=== PATIENT | male | born 1970 | race Caucasian/White ===

== ENCOUNTER 2017-04-29 19:39 | Emergency (ER) | payer BC, SELFPAY | END 2017-04-29 21:36 | disposition home or self-care (01) | PROVIDERS: Emergency Provider Emergency Medicine; Family Provider Internal Medicine Adolescent Medicine; Visit Provider Emergency Medicine | DX: I48.0 Paroxysmal atrial fibrillation (principal); I10 Essential (primary) hypertension; I20.8 Other forms of angina pectoris | CPT/HCPCS: 71020; 80053; 82550; 82553; 84484; 85025; 93005; 99284 ==

== ENCOUNTER 2020-04-06 18:16 | Emergency (ER) | payer BC, SELFPAY ==
[2020-04-06 18:34] VITALS: BP 122/80; PULSE 89; RESP 21; TEMP 37; O2SAT 99; BMI 35.2
--- NOTE | 2020-04-06 18:37 | HMH.EDUTC ---
[facility] [place]ression: Encounter for laboratory testing for COVID-19 virus, Exposure to COVID-19 virus Disposition: Home, Self-Care Condition on Discharge: Good Instructions: Preventing the Spread of Coronavirus Discharge Instructions Additional Instructions: *Monitor Temp, Over the counter Motrin or Tylenol as directed/as needed Tylenol every 4 hours and Motrin every 6 hours (as long as your family doctor has told you that you can take it) for fever or pain. and straight to ER if unable to lower temp less than 101.0 after medication given *Warm salt water gargles may help to soothe the throat *Throat Lozenges *Warm fluids like tea with honey may help to soothe the throat *Sleep elevated *Humidifier/Vaporizer Follow up IMMEDIATELY for new or worsening symptoms or no Noticeable improvement over the next 48-72 hours. 911 for difficulty breathing or swallowing You was tested for today for COVID19 your test result should be back in the next 24-48 hours, you may call to the [facility] later today or tomorrow to see if your test results are back and the result [phone] [facility] hours are 9am-9pm You was given a handout with instructions for Self Quarantine and Self isolation for while you wait on test results and what to do if they are positive If you are positive the Health Dept will be contacting you also Referrals: Jan Hernandez MD [Primary Care Provider] - As needed Forms: Work/School Release Time of Disposition: 18:42 Medical Decision Making - Phani Inquiry Pt receiving controlled substance: No Phani was queried for this patient: No Vital Signs: 04/06/20 18:34 Temperature 98.6 F Temperature Source Oral Pulse Rate [Radial] 89 Respiratory Rate 21 Blood Pressure [Right Arm] 122/80 Blood Pressure Mean [Right Arm] 94 Blood Pressure Source [Right Arm] Automatic Cuff Blood Pressure Position [Right Arm] Sitting 02 Sat by Pulse Oximetry 99 Oxygen Delivery Method Room Air [facility] [place] - General Stated complaint: covid test Time Seen by Provider: 04/06/20 18:37 Mode of Arrival: Ambulatory Source of Information: Patient Limitations: No Limitations Description of Symptoms (Recalled from Triage Doc. by RN): ACHES, COUGH, FEVER, LOSS OF SMELL HEENT Symptoms (Recalled from RN notes): Yes Resp Symptoms (Recalled from RN notes): No Skin Symptoms (Recalled from RN notes): No MS Symptoms (Recalled from RN notes): No Functional Status (Recalled from RN notes): WNL - History of Present Illness Provider Complaint: Patient state that he has been sick since Wednesday States that she was tested for COVID in [facility] but has never received the results States that he has been having fever, body aches, cough and nausea State that tested today and she was positive for COVID so he come in to get checked - Related Data Home Medications Medication Instructions Recorded Confirmed Aspirin [Aspir 81] 81 mg PO DAILY 02/27/19 02/27/19 Metoprolol Fuentes/Hydrochlorothiaz 1 each PO DAILY 02/27/19 02/27/19 [Metoprolol ER-Hctz 100-12.5 mg] Omeprazole [Omeprazole 40mg 40 mg PO DAILY 02/27/19 02/27/19 Capsule] lisinopriL [Lisinopril 10mg Tab] 10 mg PO DAILY 02/27/19 02/27/19 Previous Rx's Medication Instructions Recorded Azithromycin [Zithromax 500mg Tab 500 mg PO DAILY #3 tab 02/27/19 Tri-Andrew] predniSONE [Prednisone 50mg Tab] 50 mg PO DAILY 5 Days #5 tab 02/27/19 Allergies Allergy/AdvReac Type Severity Reaction Status Date / Time NO KNOWN ALLERGIES Allergy Unknown Uncoded 02/27/19 20:03 - Worker's Comp Is this a Worker's Comp case?: No [facility] History - Hepatitis A Screen Drug use history?: No High risk sexual behaviors?: No History of sexually transmitted infection?: No Currently employed?: No Childcare worker?: No Do you have indoor plumbing?: Yes Do you have electricity?: Yes Attestation statement:: This patient has been screened for Hepatitis A risk factors. I have reviewed
[2020-04-06 18:56] VITALS: BP 122/80; PULSE 89; RESP 21; TEMP 37; O2SAT 99
--- NOTE | 2020-04-06 23:31 | PC.NURSE ---
+ COVID results reported
== END 2020-04-06 19:00 | disposition home or self-care (01) ==
PROVIDERS: Emergency Provider Nurse Practitioner; PCP Internal Medicine Adolescent Medicine
DX: U07.1 COVID-19 (principal); I10 Essential (primary) hypertension
CPT/HCPCS: 99201; U0003

== ENCOUNTER → 2020-04-09 07:53 | Outpatient (CLI) | payer BC, SELFPAY ==
[2020-04-09] VITALS (8 sets, daily range): BP systolic 123–138; BP diastolic 84–99; PULSE 87–109; RESP 16; TEMP 36.8–36.9; O2SAT 92–94
--- NOTE | 2020-04-09 08:50 | PC.NURSE ---
Pt sitting up in bed eating breakfast at this time
== END ==
PROVIDERS: PCP Internal Medicine Adolescent Medicine; Visit Provider Internal Medicine Adolescent Medicine
DX: U07.1 COVID-19 (principal); R06.02 Shortness of breath

== ENCOUNTER 2020-04-12 19:23 | Emergency (ER) | payer BC, SELFPAY ==
[2020-04-12] VITALS (8 sets, daily range): BP systolic 113–125; BP diastolic 76–88; PULSE 98–122; RESP 17–24; TEMP 36.7–37.2; O2SAT 93–97; BMI 35.2; BMI 35.0
--- NOTE | 2020-04-12 19:30 | XR_ITS ---
PROCEDURE: XR CHEST PORTABLE CLINICAL HISTORY: COVID POSITIVE, SHORT OF BREATH COMPARISON: CR CXR CHEST(2 VIEWS-NOT PORTABLE) from 02/03/2014 CR CXR CHEST(2 VIEWS-NOT PORTABLE) from 04/29/2017 CR XR CHEST 2V from 02/27/[address] ANGIO CHEST from 04/12/2020 FINDINGS: There is poor inspiration. Borderline cardiomegaly without failure. There are scattered small nodular opacities once again noted. In the right mid lung there is a patchy area of infiltrate. Recommend chest CT for further evaluation. Postsurgical changes right clavicle IMPRESSION: Cardiomegaly with scattered small nodular densities. Patchy infiltrate in the right midlung. Dictated by: Chris Deras MD 04/13/2020 05:45 Chris Deras MD in [place] 04/13/2020 05:45
--- NOTE | 2020-04-12 20:07 | HMH.EDUTC ---
[facility] – [place] Disposition Clinical Impression: COVID-19 Atrial fibrillation Qualifiers: Atrial fibrillation type: unspecified Qualified Code(s): I48.91 - Unspecified atrial fibrillation Disposition: Still a Patient Condition on Discharge: Fair Referrals: Jan Hernandez MD [Primary Care Provider] - Time of Disposition: 20:14 Medical Decision Making - Medical Records Medical records reviewed: No: I reviewed the patient's medical records. - Phani Inquiry Pt receiving controlled substance: No Vital Signs: 04/12/20 19:32 Temperature 98.9 F Temperature Source Oral Pulse Rate [Radial] 122 H Respiratory Rate 24 Blood Pressure [Right Arm] 116/88 Blood Pressure Mean [Right Arm] 97 Blood Pressure Source [Right Arm] Automatic Cuff Blood Pressure Position [Right Arm] Sitting 02 Sat by Pulse Oximetry 97 Oxygen Delivery Method Room Air Orders (Tests/Meds): ORDERS Category Date Time Status Portable CXR [XR chest portable] Stat Exams 04/12/20 19:30 Taken [facility] [place] HPI - General Stated complaint: covid POSITIVE,FEVER,COUGH Time Seen by Provider: 04/12/20 20:07 Mode of Arrival: Ambulatory Source of Information: Patient Limitations: No Limitations Description of Symptoms (Recalled from Triage Doc. by RN): COVID POSITIVE. WANTS CHEST XRAY RELATED TO SOB AND FEVER. HEENT Symptoms (Recalled from RN notes): Yes Resp Symptoms (Recalled from RN notes): Yes Skin Symptoms (Recalled from RN notes): No MS Symptoms (Recalled from RN notes): No Functional Status (Recalled from RN notes): WNL - History of Present Illness Provider Complaint: He states that he has known that he has covid-19 for about the past 2 weeks. He has been having shortness of breath, chest pain, chest tightness, cough and fever. He has a history of atrial fib also. - Related Data Home Medications Medication Instructions Recorded Confirmed Aspirin [Aspir 81] 81 mg PO DAILY 02/27/19 02/27/19 Metoprolol Fuentes/Hydrochlorothiaz 1 each PO DAILY 02/27/19 02/27/19 [Metoprolol ER-Hctz 100-12.5 mg] Omeprazole [Omeprazole 40mg 40 mg PO DAILY 02/27/19 02/27/19 Capsule] lisinopriL [Lisinopril 10mg Tab] 10 mg PO DAILY 02/27/19 02/27/19 Previous Rx's Medication Instructions Recorded Azithromycin [Zithromax 500mg Tab 500 mg PO DAILY #3 tab 02/27/19 Tri-Andrew] predniSONE [Prednisone 50mg Tab] 50 mg PO DAILY 5 Days #5 tab 02/27/19 Allergies Allergy/AdvReac Type Severity Reaction Status Date / Time No Known Allergies Allergy Unverified 04/09/20 08:00 - Worker's Comp Is this a Worker's Comp case?: No [facility] History - Hepatitis A Screen Drug use history?: No High risk sexual behaviors?: No History of sexually transmitted infection?: No Currently employed?: No Childcare worker?: No Do you have indoor plumbing?: Yes Do you have electricity?: Yes Attestation statement:: This patient has been screened for Hepatitis A risk factors. I have reviewed the patient's past medical history: Yes - Social History Alcohol Intake: never Occupational Status: other Housing: house ROS Obtained: Yes All systems reviewed & no additional complaints - Constitutional Constitutional: Reports chills, Reports fever(s), Reports poor appetite, Reports malaise - Eyes Eyes: Denies eye discharge - ENT Ears, Nose, Mouth, and Throat: Reports sore throat - Cardiovascular Cardiovascular: Reports as per HPI - Respiratory Respiratory: Yes as per HPI Physical Exam - General General appearance: alert, in no apparent distress - Head Head exam: atraumatic, normocephalic, normal inspection - Eye Eye exam: Present: normal appearance, PERRL, EOMI - ENT ENT exam: Present: normal exam, normal oropharynx, mucous membranes moist, TM's normal bilaterally, normal external ear exam - Neck Neck exam: Present: normal inspection, full ROM, trachea midline. Absent: meningismus, lymphadenopathy - Chest Chest inspection: Present: normal inspection, symmet
--- NOTE | 2020-04-12 20:55 | CT_ITS ---
PROCEDURE: CT ANGIO CHEST CLINCIAL INDICATION: covid positive/ SOB Shortness of air, cold with positive, abnormal chest x-ray COMPARISON: No exams were available for comparison TECHNIQUE: IV Contrast: 70ML Isovue 370 Axial images obtained with sagittal and coronal reformats. All CT scans at the facility use one or more dose reduction, viz: automated exposure control, ma/kV adjustment per patient size (including targeted exams where dose is matched to indication, i.e. head), or iterative reconstruction technique. FINDINGS: HEART AND MEDIASTINAL STRUCTURES: No evidence of aortic aneurysm or pulmonary embolus. There is a tiny hypodensity within the right middle lobe pulmonary artery image 172 series 2 which is of questionable clinical significance and may even be artifact. There is bulky mediastinal and hilar adenopathy. Many of the nodes are calcified. LUNGS AND PLEURAL SPACES: There are numerous noncalcified pulmonary nodules. Few of these nodules are calcified. In addition, there are scattered multi segmental areas of patchy ground-glass attenuation consistent with Covid19 related pneumonitis. In the right upper lobe there is a 2.4 cm area of infiltrate with some central lucency suggesting early cavitation. Cavitation is not a usual finding with Covid19 pneumonia.. No effusions are evident. BONY STRUCTURES: No acute bony abnormalities apparent. UPPER ABDOMEN: Borderline splenomegaly at 13 cm. ADDITIONAL FINDINGS: No other significant abnormalities. IMPRESSION: 1. No central pulmonary embolus. There is a questionable small filling defect within the right middle lobe pulmonary artery which is of questionable clinical significance. 2. Multi segmental infiltrates in keeping with Covid19 pneumonitis. 3. Multiple bilateral pulmonary nodules. Bulky mediastinal adenopathy is also noted. Some of the nodes are calcified. This could be related to old granulomatous disease versus sarcoidosis or treated lymphoma. Please correlate with patient's history. Follow-up suggested as clinically warranted. 4. 2.4 cm area of dense consolidation in the right upper lobe with suggestion of some central cavitation. This may be related to an area of pneumonia with central necrosis or even neoplasm. Follow-up is suggested to confirm resolution Dictated by: Chris Deras MD 04/13/2020 09:00 Chris Deras MD in [place] 04/13/2020 09:00
[2020-04-12 21:03] LABS: Basophils # 0.1 K/mm3 (0-0.2); Basophils % 0.7 % (0.1-2.0); Eosinophils # 0.2 K/mm3 (0.0-0.4); Hemoglobin 16.2 g/dL (14.1-18.0); Lymphocytes # 1.4 K/mm3 (0.7-4.5); Lymphocytes % 16.3 % (10-50); Mean Corpuscular HGB Conc 34.5 g/dL (31.8-35.4); Mean Corpuscular Hemoglobin 29.1 pg (27.0-31.2); Mean Corpuscular Volume 84.1 fl (80-94); Mean Platelet Volume 7.8 fl (7.4-10.4); Monocytes # 0.6 K/mm3 (0.1-1.0); Monocytes % 6.9 % (1.7-9.3); Neutrophils # 6.1 K/mm3 (1.8-7.8); Platelet Count 298 K/mm3 (142-424); Red Blood Count 5.59 M/mm3 (4.60-6.20); Red Cell Distribution Width 14.2 % (11.5-17.5); White Blood Count 8.2 K/mm3 (4.8-10.8)
[2020-04-12 21:05] LABS: Chloride 97 mmol/L (98-107); Sodium 137 mmol/L (136-145)
[2020-04-12 21:06] LABS: Potassium 3.2 mmoL/L (3.5-5.1)
[2020-04-12 21:07] LABS: Bilirubin,Unconjugated 0.9 mg/dL (0.0-1.1)
[2020-04-12 21:08] LABS: Alanine Aminotransferase 26 U/L (12-78); Albumin Level 4.4 g/dl (3.5-5.0); Alkaline Phosphatase 102 U/L (38-126); Aspartate Amino Transferase 28 U/L (17-59); Bilirubin,Direct 0.1 mg/dl (0.0-0.4); Bilirubin,Indirect 0.9 mg/dL (0.0-0.9); Total Protein,Serum 8.8 g/dl (6.3-8.2)
[2020-04-12 21:09] LABS: Anion Gap 12.2 mEq/L (5-15); Blood Urea Nitrogen 17 mg/dl (9-20); Calcium 9.5 mg/dl (8.4-10.2); Carbon Dioxide 31 mmol/L (22.0-30.0); Creatinine Clearance Estimated 118 mL/min (50-200); Estimated Glomerular Filt Rate 65 ml/min (>60); GFR (African American) 78 ML/MIN (>60); Glucose 167 mg/dl (74-100); Lactic Acid 1.4 mmol/L (0.7-2.1)
--- NOTE | 2020-04-12 21:19 | ECG_ITS ---
APPROVED REPORT Exam: Resting ECG HR:107 bpm ECG Measurements Heart Rate 107 AXES MO 202 P 91 QRSd 150 QRS -54 QT 368 T 18 QTc 491 Conclusion 1st Degree AV block with PVCs Left axis deviation Right bundle branch block Abnormal ECG Electronically signed by : Jan Hernandez, 04/14/2020 19:58:50
[2020-04-12 21:29] LABS: Troponin I < 0.01 ng/ml (0.00-0.034)
--- NOTE | 2020-04-12 22:52 | HMH.EDSOB ---
ED Disposition Clinical Impression: COVID-19, Pneumonia due to COVID-19 virus, RBBB, Obesity (BMI 30-39.9) Atrial fibrillation Qualifiers: Atrial fibrillation type: unspecified Qualified Code(s): I48.91 - Unspecified atrial fibrillation Disposition: Home, Self-Care Condition on Discharge: Good Instructions: DI for Shortness of Breath Additional Instructions: use meds and call pcp for follow up Referrals: Jan Hernandez MD [Primary Care Provider] - - Critical Care Critical Care Time: No Attestation: On 04/12/20, the high probability of a clinically significant, sudden or life threatening deterioration of the following system(s) required my full and direct attention, intervention and personal management. The time I documented below is in addition to time spent performing reported procedures but includes the following listed in this critical care notation. Medical Decision Making - Medical Records Medical records reviewed: Yes: I reviewed the patient's medical records. - Phani Inquiry Pt receiving controlled substance: No Vital Signs: 04/12/20 19:32 04/12/20 20:41 04/12/20 21:00 Temperature 98.9 F 98.9 F Temperature Source Oral Oral Pulse Rate [Radial] 122 H 103 H 103 H Respiratory Rate 24 22 17 Blood Pressure [Right Arm] 116/88 125/88 125/88 Blood Pressure Mean [Right Arm] 97 100 100 Blood Pressure Source [Right Arm] Automatic Cuff Automatic Cuff Automatic Cuff Blood Pressure Position [Right Arm] Sitting Sitting Supine 02 Sat by Pulse Oximetry 97 97 96 Oxygen Delivery Method Room Air Room Air Room Air 04/12/20 21:30 Temperature Temperature Source Pulse Rate [Radial] 103 H Respiratory Rate 17 Blood Pressure [Right Arm] 124/83 Blood Pressure Mean [Right Arm] 96 Blood Pressure Source [Right Arm] Automatic Cuff Blood Pressure Position [Right Arm] Supine 02 Sat by Pulse Oximetry 95 Oxygen Delivery Method Room Air - Lab Data Lab results reviewed: Yes: I reviewed the patient's lab results. Lab Results 04/12/20 20:43: WBC 8.2, RBC 5.59, Hgb 16.2, Hct 47.0, MCV 84.1, MCH 29.1, MCHC 34.5, RDW 14.2, Plt Count 298, MPV 7.8, Neut % (Auto) 74.0, Lymph % (Auto) 16.3, [place] % (Auto) 6.9, Eos % (Auto) 2.0, Baso % (Auto) 0.7, Neut # (Auto) 6.1, Lymph # (Auto) 1.4, [place] # (Auto) 0.6, Eos # (Auto) 0.2, Baso # (Auto) 0.1 04/12/20 20:43: Sodium 137, Potassium 3.2 L, Chloride 97 L, Carbon Dioxide 31 H, Anion Gap 12.2, BUN 17, Creatinine 1.20, Estimated Creat Clear 118, Estimated GFR 65, Est GFR ( Amer) 78, Glucose 167 H, Calcium 9.5, Troponin I < 0.01 04/12/20 20:43: Lactate 1.4 04/12/20 20:43: Total Bilirubin 1.0, Direct Bilirubin 0.1, Conjugated Bilirubin 0.0, Indirect Bilirubin 0.9, Unconjugated Bilirubin 0.9, AST 28, ALT 26, Alkaline Phosphatase 102, Total Protein 8.8 H, Albumin 4.4 Result diagrams: 04/12/20 20:43 04/12/20 20:43 Orders (Tests/Meds): ED MEDICATIONS Generic Name Dose Route Start Last Admin Trade Name Freq PRN Reason Stop Dose Admin Albuterol Sulfate 2 puffs 04/12/20 22:55 Albuterol-Hfa 90mcg/Puff Inhaler 8gm IH 05/12/20 22:54 Q4HP PRN Shortness Of Breath Sodium Chloride 1,000 mls @ 999 mls/hr 04/12/20 20:45 04/12/20 22:10 Sod Chlor 0.9% 1000ml Bag IV 04/12/20 21:45 999 mls/hr .Q1H1M JONE Administration Discontinued Medications Generic Name Dose Route Start Last Admin Trade Name Freq PRN Reason Stop Dose Admin Dexamethasone Sodium Phosphate 10 mg 04/12/20 20:43 04/12/20 22:09 Dexamethasone 4mg/Ml 1ml Vial IV 04/12/20 20:44 10 mg ONCE ONE Administration Ketorolac Tromethamine 30 mg 04/12/20 20:43 04/12/20 22:08 Ketorolac 30mg/Ml Vial IV 04/12/20 20:44 30 mg ONCE ONE Administration Levofloxacin 500 mg 04/12/20 22:55 Levofloxacin 500mg Tab PO 04/12/20 22:56 ONCE ONE Protocol Miscellaneous 1 unit 04/12/20 22:55 Aerochamber/Optihaler MC 04/12/20 22:56 ONCE ONE ORDERS Category Date Time S
== END 2020-04-12 23:32 | disposition home or self-care (01) ==
LOC: UTC 20:14 → ER 20:25
PROVIDERS: Emergency Provider Emergency Medicine; PCP Internal Medicine Adolescent Medicine
DX: U07.1 COVID-19 (principal); J18.9 Pneumonia, unspecified organism; E66.9 Obesity, unspecified; Z68.35 Body mass index [BMI] 35.0-35.9, adult
CPT/HCPCS: 71045; 71275; 80048; 80076; 83605; 84484; 85025; 87040; 93005; 96365; 96375; 99284; Q9967

== ENCOUNTER → 2020-04-19 15:23 | Outpatient (CLI) | payer BC, SELFPAY ==
[2020-04-19 16:26] LABS: Basophils # 0.1 K/mm3 (0-0.2); Eosinophils # 0.2 K/mm3 (0.0-0.4); Eosinophils % 2.1 % (0.1-12.0); Hematocrit 44.7 % (42.0-52.0); Hemoglobin 15.5 g/dL (14.1-18.0); Lymphocytes # 1.4 K/mm3 (0.7-4.5); Lymphocytes % 14.8 % (10-50); Mean Corpuscular HGB Conc 34.7 g/dL (31.8-35.4); Mean Corpuscular Volume 86.6 fl (80-94); Mean Platelet Volume 8.1 fl (7.4-10.4); Monocytes # 0.6 K/mm3 (0.1-1.0); Monocytes % 6.1 % (1.7-9.3); Neutrophils # 7.4 K/mm3 (1.8-7.8); Neutrophils % 76.1 % (37.0-80.0); Platelet Count 305 K/mm3 (142-424); Red Blood Count 5.16 M/mm3 (4.60-6.20); Red Cell Distribution Width 13.7 % (11.5-17.5); White Blood Count 9.7 K/mm3 (4.8-10.8)
[2020-04-19 16:52] LABS: Alanine Aminotransferase 148 U/L (12-78); Albumin Level 3.8 g/dl (3.5-5.0); Albumin/Globulin Ratio 1.2 (1.1-1.8); Alkaline Phosphatase 113 U/L (38-126); Anion Gap 11.4 mEq/L (5-15); Aspartate Amino Transferase 57 U/L (17-59); Bilirubin,Total 0.6 mg/dl (0.2-1.3); Blood Urea Nitrogen 24 mg/dl (9-20); Calcium 9.4 mg/dl (8.4-10.2); Carbon Dioxide 26 mmol/L (22.0-30.0); Chloride 103 mmol/L (98-107); Estimated Glomerular Filt Rate 80 ml/min (>60); GFR (African American) 97 ML/MIN (>60); Globulin 3.3 g/dL (1.3-3.2); Glucose 188 mg/dl (74-100); Potassium 4.4 mmoL/L (3.5-5.1); Sodium 136 mmol/L (136-145); Total Protein,Serum 7.1 g/dl (6.3-8.2)
[2020-04-19 17:04] LABS: NT Pro Brain Natriuretic Pep. 337 pg/mL (0-125)
[2020-04-19 17:46] LABS: Troponin I < 0.01 ng/ml (0.00-0.034)
== END ==
PROVIDERS: Visit Provider Internal Medicine Adolescent Medicine
DX: I48.0 Paroxysmal atrial fibrillation (principal)
CPT/HCPCS: 36415; 80053; 83880; 84484; 85025

== ENCOUNTER 2020-07-28 00:08 | Emergency (ER) | payer BC, SELFPAY ==
[2020-07-28 00:18] VITALS: BP 140/104; PULSE 77; RESP 18; TEMP 36.8; O2SAT 97; BMI 35.9
[2020-07-28 00:20] LABS: POC Glucose,Bedside 390 (70-110)
[2020-07-28 00:35] LABS: Microscopic, Urine URINE MICROSCOPIC (MICROSCOPIC)
[2020-07-28 00:36] LABS: Basophils # 0.1 K/mm3 (0-0.2); Basophils % 1.3 % (0.1-2.0); Eosinophils # 0.4 K/mm3 (0.0-0.4); Eosinophils % 5.6 % (0.1-12.0); Hemoglobin 15.3 g/dL (14.1-18.0); Lymphocytes # 1.6 K/mm3 (0.7-4.5); Lymphocytes % 23.1 % (10-50); Mean Corpuscular HGB Conc 36.4 g/dL (31.8-35.4); Mean Corpuscular Hemoglobin 30.4 pg (27.0-31.2); Mean Corpuscular Volume 83.3 fl (80-94); Mean Platelet Volume 7.8 fl (7.4-10.4); Monocytes # 0.4 K/mm3 (0.1-1.0); Monocytes % 6.1 % (1.7-9.3); Neutrophils # 4.4 K/mm3 (1.8-7.8); Neutrophils % 63.9 % (37.0-80.0); Platelet Count 211 K/mm3 (142-424); Red Blood Count 5.04 M/mm3 (4.60-6.20); White Blood Count 6.8 K/mm3 (4.8-10.8)
[2020-07-28 00:37] LABS: Appearance,Urine CLEAR (Clear); Bilirubin,Urine Negative (Negative); Blood, Urine Negative (Negative); Color,Urine YELLOW (Yellow); Glucose,Urine (UA) 3+ (Negative); Ketones,Urine Negative (Negative); Leukocyte Esterase,Urine Negative (Negative); Nitrate,Urine Negative (Negative); Protein,Urine Negative (Negative); Specific Gravity, Urine >= 1.030 (1.005-1.030); Urobilinogen,Urine 0.2 EU/dl (0.2)
[2020-07-28 00:42] LABS: Acetone, Serum (Rapid) None Detected (None Detect)
[2020-07-28 00:47] LABS: Alanine Aminotransferase 29 U/L (12-78); Albumin Level 4.4 g/dl (3.5-5.0); Albumin/Globulin Ratio 1.2 (1.1-1.8); Anion Gap 11.7 mEq/L (5-15); Aspartate Amino Transferase 32 U/L (17-59); Blood Urea Nitrogen 25 mg/dl (9-20); Calcium 9.8 mg/dl (8.4-10.2); Carbon Dioxide 30 mmol/L (22.0-30.0); Chloride 93 mmol/L (98-107); Creatinine Clearance Estimated 130 mL/min (50-200); Estimated Glomerular Filt Rate 71 ml/min (>60); GFR (African American) 86 ML/MIN (>60); Globulin 3.7 g/dL (1.3-3.2); Glucose 355 mg/dl (74-100); Potassium 3.7 mmoL/L (3.5-5.1); Sodium 131 mmol/L (136-145); Total Protein,Serum 8.1 g/dl (6.3-8.2)
[2020-07-28 00:51] LABS: Amylase 52 U/L (30-110)
[2020-07-28 00:52] LABS: C-Reactive Protein 18.3 mg/L (0-4); Hemoglobin A1C 8.3 % (4.0-6.0); Lipase 85 U/L (23-300)
[2020-07-28 00:53] LABS: Alkaline Phosphatase 139 U/L (38-126)
[2020-07-28 01:05] LABS: Procalcitonin 0.084 ng/mL (0.0-2.0)
--- NOTE | 2020-07-28 01:42 | HMH.EDGENADL ---
ED Disposition Clinical Impression: Hyperglycemia without ketosis, Obesity (BMI 30-39.9) Disposition: Home, Self-Care Condition on Discharge: Good Instructions: DI for Hyperglycemia -- Adult Additional Instructions: use meds and see pcp for follow up Prescriptions: Metformin HCl [Metformin HCl ER] 500 mg PO BID #60 tab.er.24h Transmission Status: Pending to [id number] Referrals: Jan Hernandez MD [Primary Care Provider] - - Critical Care Critical Care Time: No Attestation: On 07/28/20, the high probability of a clinically significant, sudden or life threatening deterioration of the following system(s) required my full and direct attention, intervention and personal management. The time I documented below is in addition to time spent performing reported procedures but includes the following listed in this critical care notation. Medical Decision Making - Medical Records Medical records reviewed: Yes: I reviewed the patient's medical records. - Phani Inquiry Pt receiving controlled substance: No Vital Signs: 07/28/20 00:18 Temperature 98.2 F Temperature Source Oral Pulse Rate [Right] 77 Respiratory Rate 18 Blood Pressure [Right Arm] 140/104 H Blood Pressure Mean [Right Arm] 116 Blood Pressure Source [Right Arm] Automatic Cuff Blood Pressure Position [Right Arm] Sitting 02 Sat by Pulse Oximetry 97 Oxygen Delivery Method Room Air - Lab Data Lab results reviewed: Yes: I reviewed the patient's lab results. Lab Results 07/28/20 00:13: POC Glucose 390 H* 07/28/20 00:27: Urine Color Yellow, Urine Appearance Clear, Urine pH 5.0, Ur Specific [place] >= 1.030, Urine Protein Negative, Urine Glucose (UA) 3+, Urine Ketones Negative, Urine Blood Negative, Urine Nitrate Negative, Urine Bilirubin Negative, Urine Urobilinogen 0.2, Ur Leukocyte Esterase Negative, Ur Squamous Epith Cells 3-5 07/28/20 00:27: WBC 6.8, RBC 5.04, Hgb 15.3, Hct 42.0, MCV 83.3, MCH 30.4, MCHC 36.4 H, RDW 14.0, Plt Count 211, MPV 7.8, Neut % (Auto) 63.9, Lymph % (Auto) 23.1, [place] % (Auto) 6.1, Eos % (Auto) 5.6, Baso % (Auto) 1.3, Neut # (Auto) 4.4, Lymph # (Auto) 1.6, [place] # (Auto) 0.4, Eos # (Auto) 0.4, Baso # (Auto) 0.1, ESR Cancelled 07/28/20 00:27: Sodium 131 L, Potassium 3.7, Chloride 93 L, Carbon Dioxide 30, Anion Gap 11.7, BUN 25 H, Creatinine 1.10, Estimated Creat Clear 130, Estimated GFR 71, Est GFR ( Amer) 86, Glucose 355 H, Calcium 9.8, Total Bilirubin 1.0, AST 32, ALT 29, Alkaline Phosphatase 139 H, C-Reactive Protein 18.3 H, Total Protein 8.1, Albumin 4.4, Globulin 3.7 H, Albumin/Globulin Ratio 1.2, Procalcitonin 0.084, Acetone Level None detected 07/28/20 00:27: Hemoglobin A1c 8.3 H 07/28/20 00:27: Amylase 52, Lipase 85 Result diagrams: 07/28/20 00:27 07/28/20 00:27 Orders (Tests/Meds): ED MEDICATIONS Generic Name Dose Route Start Last Admin Trade Name Freq PRN Reason Stop Dose Admin Sodium Chloride 1,000 mls @ 999 mls/hr 07/28/20 00:30 07/28/20 00:30 Sod Chlor 0.9% 1000ml Bag IV 07/28/20 01:30 999 mls/hr .Q1H1M JONE Administration Discontinued Medications Generic Name Dose Route Start Last Admin Trade Name Freq PRN Reason Stop Dose Admin Insulin Human Regular 5 unit 07/28/20 01:17 07/28/20 01:17 Insulin Human Regular 100 Units/Ml 10ml Vial IVP 07/28/20 01:18 5 unit ONCE ONE Administration Medical Decision Narrative: will begin meds and call pcp for follow up General Adult HPI - General Chief complaint: Hyper/Hypoglycemia Stated complaint: Shaky;Weak; High Blood Sugar Time Seen by Provider: 07/28/20 00:30 Mode of Arrival: Ambulatory Source of Information: Patient, Spouse, Medical Record Limitations: No Limitations Description of Symptoms (Recalled from ER Triage Doc. by RN): Pt states his Glucose has been running in the 300's for several days, he has not been dx with diabetes and does not take any meds for glucose management - History of Present Illness
[2020-07-28 02:11] LABS: POC Glucose,Bedside 321 (70-110)
[2020-07-28 02:32] VITALS: BP 135/82; PULSE 84; RESP 16; TEMP 36.8; O2SAT 98
== END 2020-07-28 02:36 | disposition home or self-care (01) ==
PROVIDERS: Emergency Provider Emergency Medicine; PCP Internal Medicine Adolescent Medicine
DX: R73.9 Hyperglycemia, unspecified (principal); R03.0 Elevated blood-pressure reading, without diagnosis of hypertension; I48.91 Unspecified atrial fibrillation; E66.9 Obesity, unspecified; Z68.35 Body mass index [BMI] 35.0-35.9, adult
CPT/HCPCS: 80053; 81001; 82009; 82150; 82962; 83036; 83690; 84145; 85025; 86140; 96365; 96366; 96375; 99282

== ENCOUNTER 2020-09-08 00:33 | Emergency (ER) | payer BC, SELFPAY ==
[2020-09-08] VITALS (8 sets, daily range): BP systolic 100–163; BP diastolic 60–101; PULSE 76–83; RESP 14–17; TEMP 36.4; O2SAT 94–97; BMI 28.7
--- NOTE | 2020-09-08 00:35 | ECG_ITS ---
APPROVED REPORT Exam: Resting ECG HR:83 bpm ECG Measurements Heart Rate 83 AXES NM 230 P 33 QRSd 192 QRS -56 QT 444 T 12 QTc 521 Conclusion Sinus rhythm with 1st degree AV block Right bundle branch block Left anterior fascicular block Bifascicular block Abnormal ECG Electronically signed by : Jan Hernandez, 09/08/2020 07:28:50
--- NOTE | 2020-09-08 00:53 | CT_ITS ---
PROCEDURE INFORMATION: Exam: CT Head Without Contrast Exam date and time: 09/08/2020 12:53 AM Age: 50 years old Clinical indication: Injury or trauma; Blunt trauma (contusions or hematomas); Consciousness not specified; Patient HX: Fall. PT not responsive. Intoxicated TECHNIQUE: Imaging protocol: Computed tomography of the head without contrast. Radiation optimization: All CT scans at this facility use at least one of these dose optimization techniques: automated exposure control; mA and/or kV adjustment per patient size (includes targeted exams where dose is matched to clinical indication); or iterative reconstruction. COMPARISON: No relevant prior studies available. FINDINGS: Brain: Normal. No hemorrhage. Unremarkable white matter. No mass effect. Cerebral ventricles: No ventriculomegaly. Bones/joints: Unremarkable. No acute fracture. Paranasal sinuses: Visualized sinuses are unremarkable. No fluid levels. Mastoid air cells: Visualized mastoid air cells are well aerated. Soft tissues: Unremarkable. IMPRESSION: No acute intracranial abnormality.
--- NOTE | 2020-09-08 00:53 | CT_ITS ---
PROCEDURE INFORMATION: Exam: CT Cervical Spine Without Contrast Exam date and time: 09/08/2020 12:53 AM Age: 50 years old Clinical indication: Injury or trauma; Blunt trauma; Patient HX: Fall. Intoxicated. PT not very responsive TECHNIQUE: Imaging protocol: Computed tomography images of the cervical spine without contrast. Radiation optimization: All CT scans at this facility use at least one of these dose optimization techniques: automated exposure control; mA and/or kV adjustment per patient size (includes targeted exams where dose is matched to clinical indication); or iterative reconstruction. COMPARISON: No relevant prior studies available. FINDINGS: Bones/joints: No acute fracture. Normal alignment. Discs/Spinal canal/Neural foramina: Mild multilevel discogenic degenerative changes are present without neural foraminal or spinal canal stenosis. Lungs: Lung apices are normal. Soft tissues: Unremarkable. IMPRESSION: No acute findings.
--- NOTE | 2020-09-08 00:53 | XR_ITS ---
PROCEDURE INFORMATION: Exam: XR Chest Exam date and time: 09/08/2020 12:53 AM Age: 50 years old Clinical indication: Injury or trauma; Blunt trauma (contusions or hematomas); Patient HX: Fall. PT not very responsive. Intoxicated TECHNIQUE: Imaging protocol: XR of the chest. Views: 1 view. COMPARISON: CR XR CHEST PORTABLE 04/12/2020 8:00 PM FINDINGS: Lungs: Low lung volumes bilaterally. Pleural spaces: Unremarkable. No pleural effusion. No pneumothorax. Heart/Mediastinum: Cardiac silhouette upper limits of normal. Patchy airspace opacities partially silhouette the heart borders, could represent developing consolidations. Bones/joints: Unremarkable. IMPRESSION: Patchy airspace opacities partially silhouette the heart borders, could represent developing consolidations.
--- NOTE | 2020-09-08 00:53 | XR_ITS ---
PROCEDURE INFORMATION: Exam: XR Pelvis Exam date and time: 09/08/2020 12:53 AM Age: 50 years old Clinical indication: Injury or trauma; Blunt trauma (contusions or hematomas); Does not apply; Pelvic region; Patient HX: Fall. Not responsive TECHNIQUE: Imaging protocol: XR pelvis. Views: 1 or 2 view. COMPARISON: CR [id number] HIP RT 2-3V W/PELVIS IF PERFOR 08/08/2015 3:59 PM FINDINGS: Bones/joints: Unremarkable. No acute fracture. Soft tissues: Unremarkable. IMPRESSION: No acute findings.
[2020-09-08 01:04] LABS: Microscopic, Urine URINE MICROSCOPIC (MICROSCOPIC)
[2020-09-08 01:10] LABS: Basophils # 0.1 K/mm3 (0-0.2); Basophils % 1.5 % (0.1-2.0); Eosinophils # 0.3 K/mm3 (0.0-0.4); Eosinophils % 4.9 % (0.1-12.0); Hematocrit 41.7 % (42.0-52.0); Hemoglobin 14.3 g/dL (14.1-18.0); Lymphocytes # 1.5 K/mm3 (0.7-4.5); Lymphocytes % 23.9 % (10-50); Mean Corpuscular HGB Conc 34.3 g/dL (31.8-35.4); Mean Corpuscular Hemoglobin 28.7 pg (27.0-31.2); Mean Corpuscular Volume 83.8 fl (80-94); Mean Platelet Volume 7.1 fl (7.4-10.4); Monocytes # 0.6 K/mm3 (0.1-1.0); Monocytes % 8.6 % (1.7-9.3); Neutrophils # 3.9 K/mm3 (1.8-7.8); Platelet Count 195 K/mm3 (142-424); Red Blood Count 4.98 M/mm3 (4.60-6.20); Red Cell Distribution Width 14.2 % (11.5-17.5); White Blood Count 6.4 K/mm3 (4.8-10.8)
--- NOTE | 2020-09-08 01:14 | HMH.EDFALL ---
ED Disposition Clinical Impression: RBBB, Hypokalemia, Alcohol use Concussion without loss of consciousness Qualifiers: Encounter type: initial encounter Qualified Code(s): S06.0X0A - Concussion without loss of consciousness, initial encounter Disposition: Home, Self-Care Condition on Discharge: Good Instructions: DI for Postconcussion Syndrome Referrals: Jan Hernandez MD [Primary Care Provider] - - Critical Care Critical Care Time: No Attestation: On 09/08/20, the high probability of a clinically significant, sudden or life threatening deterioration of the following system(s) required my full and direct attention, intervention and personal management. The time I documented below is in addition to time spent performing reported procedures but includes the following listed in this critical care notation. Medical Decision Making - Medical Records Medical records reviewed: Yes: I reviewed the patient's medical records. - Phani Inquiry Pt receiving controlled substance: No Vital Signs: 09/08/20 00:34 09/08/20 00:53 09/08/20 01:41 Temperature 97.5 F L Temperature Source Rectal Pulse Rate 76 76 Pulse Rate [Right] 80 Respiratory Rate 14 Blood Pressure 150/99 H 150/99 H Blood Pressure [Right Arm] 129/76 Blood Pressure Mean [Right Arm] 93 Blood Pressure Source Automatic Cuff Automatic Cuff Blood Pressure Position Supine Supine 02 Sat by Pulse Oximetry 96 97 97 Oxygen Delivery Method Room Air Nasal Cannula Oxygen Flow Rate (LPM) 2 09/08/20 02:00 09/08/20 02:30 09/08/20 04:04 Temperature 97.5 F L Temperature Source Pulse Rate 80 78 83 Pulse Rate [Right] Respiratory Rate 16 Blood Pressure 163/100 H 154/101 H 100/65 L Blood Pressure [Right Arm] Blood Pressure Mean [Right Arm] Blood Pressure Source Automatic Cuff Automatic Cuff Blood Pressure Position Supine Supine 02 Sat by Pulse Oximetry 94 L Oxygen Delivery Method Nasal Cannula Room Air Oxygen Flow Rate (LPM) 2 - Lab Data Lab results reviewed: Yes: I reviewed the patient's lab results. Lab Results 09/08/20 00:50: WBC 6.4, RBC 4.98, Hgb 14.3, Hct 41.7 L, MCV 83.8, MCH 28.7, MCHC 34.3, RDW 14.2, Plt Count 195, MPV 7.1 L, Neut % (Auto) 61.0, Lymph % (Auto) 23.9, [place] % (Auto) 8.6, Eos % (Auto) 4.9, Baso % (Auto) 1.5, Neut # (Auto) 3.9, Lymph # (Auto) 1.5, [place] # (Auto) 0.6, Eos # (Auto) 0.3, Baso # (Auto) 0.1 09/08/20 00:50: Sodium 134 L, Potassium 2.5 L*, Chloride 95 L, Carbon Dioxide 23, Anion Gap 18.5 H, BUN 18, Creatinine 1.30 H, Estimated Creat Clear 88, Estimated GFR 59, Est GFR ( Amer) 71, Glucose 121 H, Calcium 9.6, Total Bilirubin 0.9, AST 31, ALT 26, Alkaline Phosphatase 92, Troponin I < 0.01, Total Protein 8.1, Albumin 4.7, Globulin 3.4 H, Albumin/Globulin Ratio 1.4, Salicylates < 1.0 L, Acetaminophen < 10 L 09/08/20 00:50: Plasma/Serum Alcohol 156 H 09/08/20 00:50: Urine Color Yellow, Urine Appearance Clear, Urine pH 5.0, Ur Specific [place] 1.010, Urine Protein Negative, Urine Glucose (UA) 2+, Urine Ketones Negative, Urine Blood 1+, Urine Nitrate Negative, Urine Bilirubin Negative, Urine Urobilinogen 0.2, Ur Leukocyte Esterase Negative, Urine RBC Occasional, Urine WBC Occasional, Ur Squamous Epith Cells None, Amorphous Sediment Trace, Urine Bacteria Trace 09/08/20 00:50: Urine Opiates Screen Negative, Urine Methadone Screen Negative, Ur Barbituates Screen Negative, Ur Phencyclidine Scrn Negative, Ur Amphetamines Screen Negative, U Benzodiazepines Scrn Negative, Urine Cocaine Screen Negative, U Marijuana (THC) Screen Negative 09/08/20 00:50: Hemoglobin A1c 6.7 H 09/08/20 00:50: Acetone Level None detected Result diagrams: 09/08/20 00:50 09/08/20 00:50 Orders (Tests/Meds): ED MEDICATIONS Generic Name Dose Route Start Last Admin Trade Name Freq PRN Reason Stop Dose Admin Sodium Chloride 1,000 mls @ 999 mls/hr 09/08/20 03:15 09/08/20 03:26 Sod Chlor 0.9% 1000ml Bag IV 09/08/20 04:15
[2020-09-08 01:15] LABS: Chloride 95 mmol/L (98-107); Sodium 134 mmol/L (136-145)
[2020-09-08 01:18] LABS: Alanine Aminotransferase 26 U/L (12-78); Albumin Level 4.7 g/dl (3.5-5.0); Albumin/Globulin Ratio 1.4 (1.1-1.8); Alkaline Phosphatase 92 U/L (38-126); Anion Gap 18.5 mEq/L (5-15); Aspartate Amino Transferase 31 U/L (17-59); Bilirubin,Total 0.9 mg/dl (0.2-1.3); Blood Urea Nitrogen 18 mg/dl (9-20); Calcium 9.6 mg/dl (8.4-10.2); Carbon Dioxide 23 mmol/L (22.0-30.0); Creatinine Clearance Estimated 88 mL/min (50-200); Estimated Glomerular Filt Rate 59 ml/min (>60); Ethyl Alcohol 156 mg/dl (0-10); GFR (African American) 71 ML/MIN (>60); Globulin 3.4 g/dL (1.3-3.2); Glucose 121 mg/dl (74-100); Total Protein,Serum 8.1 g/dl (6.3-8.2)
[2020-09-08 01:19] LABS: Appearance,Urine CLEAR (Clear); Bilirubin,Urine Negative (Negative); Blood, Urine 1+ (Negative); Color,Urine YELLOW (Yellow); Glucose,Urine (UA) 2+ (Negative); Ketones,Urine Negative (Negative); Leukocyte Esterase,Urine Negative (Negative); Nitrate,Urine Negative (Negative); Protein,Urine Negative (Negative); Urobilinogen,Urine 0.2 EU/dl (0.2)
[2020-09-08 01:20] LABS: Acetaminophen < 10 ug/ml (10-30); Salicylate < 1.0 mg/dL (2.0-20.0)
[2020-09-08 01:21] LABS: Potassium 2.5 mmoL/L (3.5-5.1)
--- NOTE | 2020-09-08 01:22 | PC.NURSE ---
misty notified of critical potassium
[2020-09-08 01:30] LABS: Barbiturates Screen,Urine Negative ng/ml (<200)
[2020-09-08 01:31] LABS: Amphetamine/Metha Screen,Urine Negative ng/ml (<1000); Benzodiazepines Screen,Urine Negative ng/ml (<200)
[2020-09-08 01:32] LABS: Cannabinoid Screen,Urine Negative ng/ml (<50); Cocaine Screen,Urine Negative ng/ml (<300)
[2020-09-08 01:33] LABS: Methadone Screen,Urine Negative ng/ml (<300)
[2020-09-08 01:34] LABS: Phencyclidine Screen,Urine Negative ng/ml (<25)
[2020-09-08 01:40] LABS: Troponin I < 0.01 ng/ml (0.00-0.034)
[2020-09-08 01:45] LABS: Amorphous Sediment,Urine Trace /lpf; Bacteria,Urine Trace /lpf; RBC,Urine Occasional #/hpf (0-3); WBC,Urine Occasional #/hpf (0-3)
[2020-09-08 01:51] LABS: Acetone, Serum (Rapid) None Detected (None Detect); Hemoglobin A1C 6.7 % (4.0-6.0)
[2020-09-08 02:20] LABS: Opiate Screen,Urine Negative ng/ml (<300)
[2020-09-10 07:17] LABS: ABG PH 7.39 mmol/L (7.35-7.45)
[2020-09-10 07:18] LABS: ABG Base Excess -1.7 mmol/L (-2.4-2.3); ABG HCO3 22.9 mmhg (22.0-26.0); ABG Oxygen Saturation 92 % (90-100); ABG PCO2 38.4 mmhg (35.0-45.0); ABG PO2 65.2 mmhg (80-100); ABG TCO2 24.1 mmhg (23-27); Allen's Test ACCEPTABLE; Oxygen ROOM AIR %; Source L RADIAL
[2020-10-21 12:31] LABS: POC Glucose,Bedside 140 (70-110)
== END 2020-09-08 04:25 | disposition home or self-care (01) ==
PROVIDERS: Emergency Provider Emergency Medicine; PCP Internal Medicine Adolescent Medicine
DX: S06.0X0A Concussion without loss of consciousness, initial encounter (principal); W18.39XA Other fall on same level, initial encounter; Y92.019 Unspecified place in single-family (private) house as the place of occurrence of the external cause; F10.10 Alcohol abuse, uncomplicated; E11.65 Type 2 diabetes mellitus with hyperglycemia; E87.6 Hypokalemia
CPT/HCPCS: 70450; 71045; 72125; 72170; 80053; 80305; 80329; 81001; 82009; 82803; 82962; 83036; 84484; 85025; 93005; 96365; 96375; 99283

== ENCOUNTER → 2020-09-10 09:05 | Outpatient (CLI) | payer BC, SELFPAY ==
--- NOTE | 2020-09-10 | XR_ITS ---
PROCEDURE: XR SHOULDER LT MIN 2V CLINICAL INDICATION: ACUTE PAIN DUE TO INJURY COMPARISON: CR SHOU2R [id number] VIEW COMP.-RT from 09/02/2012 CR SHOU3R [id number] VIEWS from 12/09/2012 FINDINGS: No fracture or dislocation. No lytic or blastic change. There is normal mineralization. Mild osteoarthritic changes are present at the acromioclavicular and glenohumeral joint. There is minimal hypertrophic change along the inferior aspect of the acromion with mild subacromial stenosis. Other findings:None. IMPRESSION: No acute fracture. Osteoarthritic change of the AC joint and glenohumeral joint with mild subacromial stenosis Dictated by: Chris Deras MD 09/10/2020 10:26 Chris Deras MD in [place] 09/10/2020 10:26
--- NOTE | 2020-09-10 | XR_ITS ---
PROCEDURE: XR KNEE LT 3V CLINICAL INDICATION: ACUTE PAIN DUE TO INJURY COMPARISON: No exams were available for comparison FINDINGS: No fracture or dislocation. No lytic or blastic change. There is normal mineralization. The joint spaces are well preserved. Other findings:None. IMPRESSION: No acute findings. Dictated by: Chris Deras MD 09/10/2020 10:28 Chris Deras MD in [facility] 09/10/2020 10:28
== END ==
PROVIDERS: PCP Internal Medicine Adolescent Medicine; Visit Provider Internal Medicine Adolescent Medicine
DX: G89.11 Acute pain due to trauma (principal)
CPT/HCPCS: 73030; 73562

== ENCOUNTER → 2020-10-23 15:34 | Outpatient (CLI) | payer BC, SELFPAY ==
[2020-10-23 17:50] LABS: Basophils # 0.1 K/mm3 (0-0.2); Basophils % 1.1 % (0.1-2.0); Eosinophils # 0.2 K/mm3 (0.0-0.4); Eosinophils % 3.6 % (0.1-12.0); Hematocrit 42.2 % (42.0-52.0); Hemoglobin 14.9 g/dL (14.1-18.0); Lymphocytes # 1.1 K/mm3 (0.7-4.5); Lymphocytes % 16.2 % (10-50); Mean Corpuscular HGB Conc 35.2 g/dL (31.8-35.4); Mean Corpuscular Hemoglobin 28.4 pg (27.0-31.2); Mean Corpuscular Volume 80.9 fl (80-94); Mean Platelet Volume 7.1 fl (7.4-10.4); Monocytes # 0.5 K/mm3 (0.1-1.0); Monocytes % 6.8 % (1.7-9.3); Neutrophils # 4.9 K/mm3 (1.8-7.8); Neutrophils % 72.4 % (37.0-80.0); Platelet Count 213 K/mm3 (142-424); Red Blood Count 5.22 M/mm3 (4.60-6.20); Red Cell Distribution Width 13.9 % (11.5-17.5); White Blood Count 6.7 K/mm3 (4.8-10.8)
[2020-10-23 19:44] LABS: Hemoglobin A1C 5.3 % (4.0-6.0)
[2020-10-23 19:56] LABS: Alanine Aminotransferase 17 U/L (12-78); Albumin Level 4.4 g/dl (3.5-5.0); Albumin/Globulin Ratio 1.3 (1.1-1.8); Alkaline Phosphatase 81 U/L (38-126); Anion Gap 11.6 mEq/L (5-15); Aspartate Amino Transferase 24 U/L (17-59); Bilirubin,Total 0.9 mg/dl (0.2-1.3); Blood Urea Nitrogen 26 mg/dl (9-20); Calcium 9.6 mg/dl (8.4-10.2); Carbon Dioxide 29 mmol/L (22.0-30.0); Chloride 103 mmol/L (98-107); Estimated Glomerular Filt Rate 79 ml/min (>60); GFR (African American) 96 ML/MIN (>60); Globulin 3.3 g/dL (1.3-3.2); Glucose 90 mg/dl (74-100); Potassium 3.6 mmoL/L (3.5-5.1); Sodium 140 mmol/L (136-145); Total Protein,Serum 7.7 g/dl (6.3-8.2)
[2020-10-23 20:27] LABS: Thyroid Stimulating Hormone 1.66 uIU/mL (0.465-4.68)
== END ==
PROVIDERS: Visit Provider Internal Medicine Adolescent Medicine
DX: I48.0 Paroxysmal atrial fibrillation (principal); E11.65 Type 2 diabetes mellitus with hyperglycemia; Z79.84 Long term (current) use of oral hypoglycemic drugs
CPT/HCPCS: 36415; 80053; 83036; 84443; 85025; 93270

== ENCOUNTER 2021-03-08 11:09 | Emergency (ER) | payer BC, SELFPAY ==
[2021-03-08 11:09] VITALS: BP 149/93; PULSE 83; RESP 20; TEMP 36.8; O2SAT 96; BMI 31.1
--- NOTE | 2021-03-08 11:23 | XR_ITS ---
PROCEDURE INFORMATION: Exam: XR Chest Exam date and time: 03/08/2021 11:23 AM Age: 50 years old Clinical indication: Pain; On breathing; Additional info: R. Back pain with diminished breath sounds TECHNIQUE: Imaging protocol: XR of the chest. Views: 1 view. COMPARISON: CR XR CHEST PORTABLE 09/08/2020 1:34 AM FINDINGS: Tubes, catheters and devices: Transvenous pacemaker leads in the heart Lungs: Patchy bilateral opacities may represent multifocal pneumonia including COVID-19.. Pleural spaces: Unremarkable. No pleural effusion. No pneumothorax. Heart/Mediastinum: Unremarkable. No cardiomegaly. Bones/joints: Degenerative changes in the glenohumeral joints IMPRESSION: Patchy bilateral opacities may represent multifocal pneumonia including COVID-19..
[2021-03-08 12:02] LABS: Basophils # 0.1 K/mm3 (0-0.2); Basophils % 0.7 % (0.1-2.0); Eosinophils # 0.1 K/mm3 (0.0-0.4); Eosinophils % 1.2 % (0.1-12.0); Hematocrit 46.4 % (42.0-52.0); Hemoglobin 15.3 g/dL (14.1-18.0); Lymphocytes # 0.8 K/mm3 (0.7-4.5); Lymphocytes % 7.8 % (10-50); Mean Corpuscular HGB Conc 32.9 g/dL (31.8-35.4); Mean Corpuscular Hemoglobin 29.2 pg (27.0-31.2); Mean Corpuscular Volume 88.8 fl (80-94); Mean Platelet Volume 8.1 fl (7.4-10.4); Monocytes # 0.6 K/mm3 (0.1-1.0); Monocytes % 5.6 % (1.7-9.3); Neutrophils % 84.8 % (37.0-80.0); Platelet Count 212 K/mm3 (142-424); Red Blood Count 5.23 M/mm3 (4.60-6.20); Red Cell Distribution Width 14.2 % (11.5-17.5); White Blood Count 10.6 K/mm3 (4.8-10.8)
[2021-03-08 12:07] LABS: Chloride 103 mmol/L (98-107); Sodium 139 mmol/L (136-145)
[2021-03-08 12:08] LABS: Potassium 4.2 mmoL/L (3.5-5.1)
[2021-03-08 12:10] LABS: Alanine Aminotransferase 20 U/L (12-78); Albumin Level 4.1 g/dl (3.5-5.0); Alkaline Phosphatase 82 U/L (38-126); Aspartate Amino Transferase 22 U/L (17-59); Blood Urea Nitrogen 17 mg/dl (9-20); Creatinine Clearance Estimated 113 mL/min (50-200); Estimated Glomerular Filt Rate 71 ml/min (>60); GFR (African American) 86 ML/MIN (>60)
[2021-03-08 12:11] LABS: Albumin/Globulin Ratio 1.1 (1.1-1.8); Anion Gap 14.2 mEq/L (5-15); Calcium 9.2 mg/dl (8.4-10.2); Carbon Dioxide 26 mmol/L (22.0-30.0); Globulin 3.8 g/dL (1.3-3.2); Glucose 130 mg/dl (74-100); Total Protein,Serum 7.9 g/dl (6.3-8.2)
--- NOTE | 2021-03-08 12:12 | HMH.EDGENADL ---
"ED Disposition Clinical Impression: Muscle spasm Disposition: Home, Self-Care Condition on Discharge: Good Instructions: DI for Acute Pain -- Child Additional Instructions: You were evaluated in the emergency department today for back pain, and there is no need for further emergent evaluation at this time. Exact cause of symptoms is unclear, but is likely due to muscular spasm. Use ibuprofen, acetaminophen, new prescription of Robaxin as directed and follow-up with PCP in the next 2 to 3 days for monitoring of any persistent symptoms and coordination of ongoing care needs. Return to the emergency department without hesitation with any new or worsening symptoms. Prescriptions: methocarbamoL [Methocarbamol] 750 mg PO BID #20 tab Transmission Status: Pending to [id number] Referrals: Jan Hernandez MD [Primary Care Provider] - - Critical Care Critical Care Time: No Attestation: On 03/08/21, the high probability of a clinically significant, sudden or life threatening deterioration of the following system(s) required my full and direct attention, intervention and personal management. The time I documented below is in addition to time spent performing reported procedures but includes the following listed in this critical care notation. Medical Decision Making - Phani Inquiry Pt receiving controlled substance: Yes Phani was queried for this patient: No Risks and benefits of using a controlled substance: were discussed with pt by me Vital Signs: 03/08/21 11:09 03/08/21 13:00 03/08/21 13:30 Temperature 98.3 F Temperature Source Oral Pulse Rate 80 80 Pulse Rate [Left Radial] 83 Respiratory Rate 20 Blood Pressure 97/55 L 90/52 L Blood Pressure [Right Arm] 149/93 H Blood Pressure Mean 66 Blood Pressure Mean [Right Arm] 111 Blood Pressure Source [Right Arm] Automatic Cuff Blood Pressure Position [Right Arm] Sitting 02 Sat by Pulse Oximetry 96 92 L 95 Oxygen Delivery Method Room Air - Lab Data Lab Results 03/08/21 11:53: WBC 10.6, RBC 5.23, Hgb 15.3, Hct 46.4, MCV 88.8, MCH 29.2, MCHC 32.9, RDW 14.2, Plt Count 212, MPV 8.1, Neut % (Auto) 84.8 H, Lymph % (Auto) 7.8 L, Wallace % (Auto) 5.6, Eos % (Auto) 1.2, Baso % (Auto) 0.7, Neut # (Auto) 9.0 H, Lymph # (Auto) 0.8, Wallace # (Auto) 0.6, Eos # (Auto) 0.1, Baso # (Auto) 0.1 03/08/21 11:53: Troponin I < 0.01 03/08/21 11:53: Sodium 139, Potassium 4.2, Chloride 103, Carbon Dioxide 26, Anion Gap 14.2, BUN 17, Creatinine 1.10, Estimated Creat Clear 113, Estimated GFR 71, Est GFR ( Amer) 86, Glucose 130 H, Calcium 9.2, Total Bilirubin 1.0, AST 22, ALT 20, Alkaline Phosphatase 82, Total Protein 7.9, Albumin 4.1, Globulin 3.8 H, Albumin/Globulin Ratio 1.1 03/08/21 13:39: Urine Color Yellow, Urine Appearance Clear, Urine pH 5.5, Ur Specific [place] 1.025, Urine Protein Negative, Urine Glucose (UA) 3+, Urine Ketones Negative, Urine Blood Negative, Urine Nitrate Negative, Urine Bilirubin Negative, Urine Urobilinogen 0.2, Ur Leukocyte Esterase Negative, Urine WBC 3-5, Ur Squamous Epith Cells Occasional, Urine Bacteria Trace Result diagrams: 03/08/21 11:53 03/08/21 11:53 Orders (Tests/Meds): ED MEDICATIONS Discontinued Medications Generic Name Dose Route Start Last Admin Trade Name Eugenia PRN Reason Stop Dose Admin Diazepam 5 mg 03/08/21 11:10 03/08/21 11:11 Diazepam 5mg Tablet PO 03/08/21 11:11 5 mg ONCE ONE Administration Ketorolac Tromethamine 60 mg 03/08/21 11:10 03/08/21 11:11 Ketorolac 60mg/2ml Vial IM 03/08/21 11:11 60 mg ONCE ONE Administration Morphine Sulfate 4 mg 03/08/21 11:25 03/08/21 12:04 Morphine 4mg/Ml Syringe IV 03/08/21 11:26 4 mg ONCE ONE Administration Ondansetron HCl 4 mg 03/08/21 11:25 03/08/21 12:04 Ondansetron 4mg/2ml Vial IV 03/08/21 11:26 4 mg ONCE ONE Administration ORDERS Category Date Time Status Troponin I Q3H Lab 03/08/21 14:30 Ordered Troponin"
[2021-03-08 12:26] LABS: Troponin I < 0.01 ng/ml (0.00-0.034)
[2021-03-08 13:00] VITALS: BP 97/55; PULSE 80; O2SAT 92
[2021-03-08 13:30] VITALS: BP 90/52; PULSE 80; O2SAT 95
[2021-03-08 13:52] LABS: Microscopic, Urine URINE MICROSCOPIC (MICROSCOPIC)
[2021-03-08 13:56] LABS: Appearance,Urine CLEAR (Clear); Bilirubin,Urine Negative (Negative); Blood, Urine Negative (Negative); Color,Urine YELLOW (Yellow); Glucose,Urine (UA) 3+ (Negative); Ketones,Urine Negative (Negative); Leukocyte Esterase,Urine Negative (Negative); Nitrate,Urine Negative (Negative); PH,Urine 5.5 (5.0-8.5); Protein,Urine Negative (Negative); Specific Gravity, Urine 1.025 (1.005-1.030); Urobilinogen,Urine 0.2 EU/dl (0.2)
[2021-03-08 14:10] LABS: Bacteria,Urine Trace /lpf; Squamous Epithelial Cell,Urine Occasional #/hpf (0-5)
[2021-03-08 15:01] VITALS: BP 100/58; PULSE 76; RESP 20; TEMP 36.8; O2SAT 98
== END 2021-03-08 15:01 | disposition home or self-care (01) ==
PROVIDERS: Emergency Provider Student in an Organized Health Care Education/Training Program; PCP Internal Medicine Adolescent Medicine
DX: M62.830 Muscle spasm of back (principal); M54.50 Low back pain, unspecified; I10 Essential (primary) hypertension; I25.10 Atherosclerotic heart disease of native coronary artery without angina pectoris; E11.9 Type 2 diabetes mellitus without complications; E78.5 Hyperlipidemia, unspecified; Z79.84 Long term (current) use of oral hypoglycemic drugs; Z79.899 Other long term (current) drug therapy
CPT/HCPCS: 71045; 80053; 81001; 84484; 85025; 96374; 96375; 99283; J2405

== ENCOUNTER → 2021-04-29 08:40 | Outpatient (CLI) | payer BC, SELFPAY ==
--- NOTE | 2021-04-29 08:47 | XR_ITS ---
PROCEDURE: XR SHOULDER LT MIN 2V CLINICAL INDICATION: ROTATOR CUFF IMPINGEMENT SYNDROME OF LT SHOULDER COMPARISON: CR SHOU2R [id number] VIEW COMP.-RT from 09/02/2012 CR SHOU3R [id number] VIEWS from 12/09/2012 CR XR SHOULDER LT MIN 2V from 09/10/2020 FINDINGS: Internal and external rotation of the left shoulder show minimal osteoarthritic change at glenohumeral and acromioclavicular joint. Left subclavian placed pacemaker is noted. No bony destructive process. There is an old left 6th rib fracture. Other findings:None. IMPRESSION: Minimal osteoarthritic changes Dictated by: Chris Deras MD 04/29/2021 17:35 Chris Deras MD in [place] 04/29/2021 17:35
[2021-04-29 09:50] LABS: Basophils # 0.1 K/mm3 (0-0.2); Basophils % 1.6 % (0.1-2.0); Eosinophils # 0.2 K/mm3 (0.0-0.4); Eosinophils % 3.8 % (0.1-12.0); Hematocrit 46.7 % (42.0-52.0); Hemoglobin 15.9 g/dL (14.1-18.0); Lymphocytes # 0.9 K/mm3 (0.7-4.5); Lymphocytes % 20.8 % (10-50); Mean Corpuscular HGB Conc 34.1 g/dL (31.8-35.4); Mean Corpuscular Hemoglobin 28.8 pg (27.0-31.2); Mean Corpuscular Volume 84.4 fl (80-94); Mean Platelet Volume 7.1 fl (7.4-10.4); Monocytes # 0.4 K/mm3 (0.1-1.0); Monocytes % 8.4 % (1.7-9.3); Neutrophils # 2.8 K/mm3 (1.8-7.8); Neutrophils % 65.4 % (37.0-80.0); Platelet Count 166 K/mm3 (142-424); Red Blood Count 5.53 M/mm3 (4.60-6.20); Red Cell Distribution Width 13.9 % (11.5-17.5); White Blood Count 4.3 K/mm3 (4.8-10.8)
[2021-04-29 10:05] LABS: Hemoglobin A1C 5.3 % (4.0-6.0)
[2021-04-29 10:35] LABS: Chloride 102 mmol/L (98-107); Potassium 4.6 mmoL/L (3.5-5.1); Sodium 138 mmol/L (136-145)
[2021-04-29 10:38] LABS: Alanine Aminotransferase 33 U/L (12-78); Albumin Level 4.5 g/dl (3.5-5.0); Albumin/Globulin Ratio 1.5 (1.1-1.8); Alkaline Phosphatase 79 U/L (38-126); Anion Gap 14.6 mEq/L (5-15); Aspartate Amino Transferase 32 U/L (17-59); Blood Urea Nitrogen 26 mg/dl (9-20); Calcium 9.8 mg/dl (8.4-10.2); Carbon Dioxide 26 mmol/L (22.0-30.0); Chol/HDL Ratio 5.7 (1-3.5); Cholesterol 298 mg/dl (140-200); Estimated Glomerular Filt Rate 71 ml/min (>60); GFR (African American) 86 ML/MIN (>60); Globulin 3.1 g/dL (1.3-3.2); Glucose 117 mg/dl (74-100); HDL Cholesterol 52 mg/dl (40-60); Total Protein,Serum 7.6 g/dl (6.3-8.2); Triglycerides 188 mg/dl (30-150); VLDL Cholesterol 38 mg/dL (0-40)
[2021-04-29 10:49] LABS: Direct LDL Cholesterol 198.29 mg/dL (100-129)
== END ==
PROVIDERS: PCP Internal Medicine Adolescent Medicine; Visit Provider Internal Medicine Adolescent Medicine
DX: E11.65 Type 2 diabetes mellitus with hyperglycemia (principal); I88.9 Nonspecific lymphadenitis, unspecified; M75.42 Impingement syndrome of left shoulder; M75.102 Unspecified rotator cuff tear or rupture of left shoulder, not specified as traumatic; Z79.84 Long term (current) use of oral hypoglycemic drugs
CPT/HCPCS: 36415; 73030; 80053; 80061; 83036; 85025

== ENCOUNTER 2021-09-15 11:00 | Outpatient (RCR) | payer BC, SELFPAY ==
--- NOTE | 2021-05-16 09:01 | HMH.OTOPEV ---
OT Inpatient Evaluation Rehab OT Outpatient Eval Start: 05/16/21 08:48 Freq: Status: Active Protocol: Document 05/16/21 08:48 RMLEE (Rec: 05/16/21 09:01 LI [id number]) Electronically Signed By Tulio Jain OT 05/16/21 08:48 Outpatient Therapy Subjective History Subjective History Pt is a 51 year old male who reports to therapy for initial evaluation to left shoulder. Pt reports he had a pacemaker placed on March 03, 2021 and was instructed not to use L arm for ~6 weeks. Since this surgery, he has had severe pain and stiffness at left shoulder. Pt does have a past medical history of heart conditions, a-fib, diabetes, and HTN. Pt symptoms could be consistent with frozen shoulder. Upon evaluation pt' s AROM and strength at left shoulder is severely limited. Pt is right hand dominant. Pt will continue to be seen twice a week in order to address all deficits. Chief Complaint Pain,Stiff,Weakness Symptom Type Ache,Throb,Sharp,Dull,Stabbing Symptoms Relieved By Rest/Positioning Symptoms Aggravated By Physical Activity,Lifting Prior Functional Limitations None Current Functional Limitations Reaching,Lifting,Housework, Dressing,Driving,Sleeping, Recreation Activity Symptom Description Constant but Variable Level of pain today (0-10) 8 Pain scale - at its best (0-10) 4 Pain scale - at its worst (0-10) 10 Shoulder/Elbow Eval Shoulder Objective Measurements Shoulder ROM Left Shoulder Abduction Active Range of 50 degrees Motion (degrees) Shoulder Abduction Passive Range of 100 degrees Motion (degrees) Shoulder Flexion Active Range of Motion 40 degrees (degrees) Query Text: Shoulder Flexion Passive Range of Motion 110 degrees (degrees) Shoulder External Rotation Active Range 20 degrees of Motion (degrees) Shoulder External Rotation Passive Range 50 degrees of Motion (degrees) Shoulder Internal Rotation Active Range 50 degrees of Motion (degrees) Shoulder Internal Rotation Passive Range 70 degrees of Motion (degrees) Shoulder MMT
--- NOTE | 2021-06-18 08:53 | HMH.RHREAS ---
Rehab Reassessment Rehab OP Re-assessment Start: 06/18/21 07:50 Freq: Status: Active Protocol: Document 06/18/21 07:52 LI (Rec: 06/18/21 08:52 LI [id number]) Electronically Signed By Tulio Jain OT 06/18/21 07:52 Rehab Re-assessment Subjective Subjective We have got to do something else. Objective Objective Notes Pt continues to be seen twice a week in order to address left shoulder deficits. Each session pt engages in L shoulder AROM, AAROM, and strengthening exercises. Pt also receives gentle therapeutic stretching to left shoulder in all planes. Pt cannot receive modalities due to pacemaker and contraindications. Assessment Progress Assessment Slower Than Expected Assessment Notes Pt's AROM has improved since starting thearpy. However, pt continues to complain of 10/ 10 pain at the shoulder. He complains of his worst pain in abduction/internal rotation. Pt reports he cannot sleep at night and pain continues throughout the day. Therapist recommends he returns to his doctor in order to be re- evaluated due to continued severe pain. Current AROM Flex: 128 degrees Abd: 95 degrees ER: 65 degrees IR: 50 [address] Patient goals [address] and 5 Goals Not Met See below Revised Goals ST, 2, and 4 LT-5 Plan Plan Continue with OT plan of care at this time. Return to doctor for re- evaluation Frequency of Therapy 2x's a week Duration of therapy 4 more weeks Time and Billing Re-Eval Time 10 Re-Eval Billing Units 1 PHYSICIAN CERTIFICATION: I certify the specified therapy services for Javier Landrum are required, authorized, and reviewed every 30 days.
--- NOTE | 2021-07-15 11:39 | HMH.RHREAS ---
Rehab Reassessment Rehab OP Re-assessment Start: 06/18/21 07:50 Freq: Status: Active Protocol: Document 07/15/21 11:33 LI (Rec: 07/15/21 11:39 [id number]) Electronically Signed By Tulio Jain OT 07/15/21 11:33 Rehab Re-assessment Subjective Subjective They said I have frozen shoulder. Objective Objective Notes Pt continues to be seen twice a week in order to address left shoulder deficits. Each session pt engages in L shoulder AROM, AAROM, and strengthening exercises. Pt also receives gentle therapeutic stretching to left shoulder in all planes. Pt cannot receive modalities due to pacemaker and contraindications. Assessment Progress Assessment Slower Than Expected Assessment Notes Pt's AROM has improved since starting thearpy. Pt continues to complain of 7/10 pain at the shoulder. He complains of his worst pain in abduction/ internal rotation. Today, pt went to ortho and was diagnosed with frozen shoulder . Pt received a steroid injection in shoulder by ortho . He returns to ortho for second injection on August 14. Pt shows minimal improvement in AROM since last re- assessment. Pt reports if his injections do not improve shoulder AROM, ortho suggested a manipulation. Current AROM Flex: 130 degrees Abd: 110 degrees ER: 70 degrees IR: 55 degrees Patient goals met ST and 5 Goals Not Met See below Revised Goals ST, 2, and 4 LT-5 Plan Plan Continue with OT plan of care at this time. Frequency of Therapy 2x's a week Duration of therapy 4 more weeks Time and Billing Re-Eval Time 10 Re-Eval Billing Units
--- NOTE | 2021-08-14 08:48 | HMH.RHREAS ---
Rehab Reassessment Rehab OP Re-assessment Start: 06/18/21 07:50 Freq: Status: Active Protocol: Document 08/14/21 07:57 LI (Rec: 08/14/21 08:47 LI [id number]) Electronically Signed By Tulio Jain OT 08/14/21 07:57 Rehab Re-assessment Subjective Subjective I get my second injection today. Objective Objective Notes Pt continues to be seen twice a week in order to address left shoulder deficits. Each session pt engages in L shoulder AROM, AAROM, and strengthening exercises. Pt also receives gentle therapeutic stretching to left shoulder in all planes. Pt cannot receive modalities due to pacemaker and contraindications. Assessment Progress Assessment Slower Than Expected Assessment Notes Pt reports since his initial injection, his pain has improved. He also explains his motion has improved. However, he is still having pain at 4/10 at times. He also expresses his biggest concern is his range of motion /pain in abduction. AROM has improved slightly since last re-assessment. Pt returns to ortho today for second injection. He has his 3rd injection next month. Current AROM Flex: 136 degrees Abd: 110 degrees ER: 74 degrees IR: 58 degrees Patient goals met [address]-5 Goals Not Met See below Revised Goals LT-5 Plan Plan Continue with OT plan of care at this time. Frequency of Therapy 2x's a week Duration of therapy 4 more weeks Time and Billing Re-Eval Time 10 Re-Eval Billing Units 1 PHYSICIAN CERTIFICATION: I certify the specified therapy services for Javier Landrum are required, authorized, and reviewed every 30 days.
--- NOTE | 2021-09-11 08:55 | HMH.RHREAS ---
Rehab Reassessment Rehab OP Re-assessment Start: 06/18/21 07:50 Freq: Status: Active Protocol: Document 09/11/21 07:51 LI (Rec: 09/11/21 08:54 LI [id number]) Electronically Signed By Tulio Jain OT 09/11/21 07:51 Rehab Re-assessment Objective Objective Notes Pt continues to be seen twice a week in order to address left shoulder deficits. Each session pt engages in L shoulder AROM, AAROM, and strengthening exercises. Pt also receives gentle therapeutic stretching to left shoulder in all planes. Pt cannot receive modalities due to pacemaker and contraindications. Assessment Progress Assessment Slower Than Expected Assessment Notes Pt continues to report improvement overall with shoulder. At times he still feels his shoulder will lock up. He rates his pain at a 2 /10 today. Pt's AROM has improved at left shoulder and he is now able to complete more functional daily tasks. He receives his 3rd injection today. Current AROM Flex: 152 degrees Abd: 134 degrees ER: 80 degrees IR: 66 degrees Patient goals met ST-5 Goals Not Met See below Revised Goals LT-5 Plan Plan Continue with OT plan of care at this time. Frequency of Therapy 2x's a week Duration of therapy 4 more weeks Time and Billing Re-Eval Time 10 Re-Eval Billing Units 1 PHYSICIAN CERTIFICATION: I certify the specified therapy services for Javier Landrum are required, authorized, and reviewed every 30 days.
== END 2021-09-15 11:05 | disposition home or self-care (01) ==
LOC: OT 11:00
PROVIDERS: PCP Internal Medicine Adolescent Medicine; Visit Provider Internal Medicine Adolescent Medicine
DX: M75.102 Unspecified rotator cuff tear or rupture of left shoulder, not specified as traumatic (principal)
CPT/HCPCS: 97010; 97014; 97033; 97110; 97140; 97164; 97166; 97530; G0283

== ENCOUNTER → 2021-10-20 15:14 | Outpatient (CLI) | payer BC, SELFPAY | PROVIDERS: PCP Internal Medicine Adolescent Medicine; Visit Provider Internal Medicine | DX: Z01.812 Encounter for preprocedural laboratory examination (principal); Z20.822 Contact with and (suspected) exposure to COVID-19; Z12.11 Encounter for screening for malignant neoplasm of colon | CPT/HCPCS: C9803; U0003; U0005 ==

== ENCOUNTER 2021-10-22 09:51 | Day surgery (SDC) | payer BC, SELFPAY ==
[2021-10-02 14:07] VITALS: BMI 30.2
[2021-10-22 10:15] VITALS: BP 130/98; PULSE 73; RESP 18; TEMP 36.4; O2SAT 98
[2021-10-22 11:15] VITALS: O2SAT 98
[2021-10-22 11:35] VITALS: BP 91/64; PULSE 70; RESP 16; TEMP 36.1; O2SAT 95
--- NOTE | 2021-10-22 11:36 | HMH.SCOPE ---
- Procedure: Date: 10/22/21 Patient Date of :: 1970 Procedure Performed:: Colonoscopy Indications:: The patient is a 51 year old who presents for screening colonoscopy. There is a family history of colon cancer in paternal second degree relatives (uncle and grandfather) Performing Provider:: Vikram Núñez MD Referring Provider:: Jan Hernandez MD Sedation:: See RN records Procedure:: After placing the patient in the left lateral decubitus position, the colonoscopy was gently inserted into the rectum and under direct visualization advanced to the cecum which was identified by transillumination in the right lower quadrant, identification of the ileocecal valve, appendiceal orifice, and cecal strap. Color, texture, mucosa, and anatomy of the colon were carefully examined with the scope. Findings:: Anal canal: normal Rectum: normal Sigmoid colon: normal without polyps or inflammatory changes Descending colon: normal without polyps or inflammatory changes Splenic flexure: normal Transverse colon: normal without polyps or inflammatory changes Hepatic flexure: normal Ascending colon: normal without polyps or inflammatory changes Cecum: normal Terminal ileum: not visualized Recommendations:: Repeat colonoscopy in 5 years Complications:: None Estimated blood obtained (mL): 0
--- NOTE | 2021-10-22 11:38 | P.PN_ITS ---
[facility] Anesthesia Checklist - Patient Identification Patient Identification: Arm Band - Structural Data Admitted From: Home Planned Operative Procedure/s: colonoscopy Consent for Planned Operative Procedure(s) Verified: Yes Verified Documents: Surgical Consent, History and Physical - NPO Status Verified Time NPO: 00:00 - Additional verifications Anesthesia Reactions: No - Airway Assessment C-Spine Mobility Assessed: Yes (mp2) TMJ Mobility Assessed: Yes Dentition: Good Dentition - Neurological Assessment Level of Consciousness: Awake, Alert - Anesthesia Plan Anesthesia Risk discussed: Yes Anesthesia Plan: Verified ASA Class: III Anesthesia Type: MAC [facility] History I have reviewed the patient's past medical history: Yes Medical History: Reports:: Atrial Fibrillation, Diabetes Mellitus Type 2, Gastroesophageal Reflux Disease(GERD), Hypertension, Internal Pacemaker Denies:: Cancer, MRSA, Seizures *Have you ever received a pneumonia vaccine?: No *Have you received a flu vaccine this season?: No Anesthesia experience/problems:: nac Laterality Cases: Right: Arthroscopy Shoulder Other Surgeries: Yes: Pacemaker, Other Amputation: No Fractures: No - *Social History Last grade of school completed: High school graduate Smoking Status: Never smoker Alcohol Intake: never Alcohol Intake Frequency:: a few times a week Substance Use Type: denies use *Occupational Status:: disabled Housing: house *Travel in the last 8 weeks: None Family Hx:: No significant family history
[2021-10-22 11:45] VITALS: BP 106/70; PULSE 70; RESP 18; TEMP 36.1; O2SAT 96
[2021-10-22 11:55] VITALS: BP 123/69; PULSE 70; RESP 18; TEMP 36.1; O2SAT 97
[2021-10-22 11:56] LABS: POC Glucose,Bedside 111 (70-110)
[2021-10-22 12:20] VITALS: BP 118/70; PULSE 70; RESP 18; TEMP 36.1; O2SAT 95
[2021-10-23 12:07] LABS: POC Glucose,Bedside 173 (70-110)
[2021-10-23 12:07] LABS: POC Glucose,Bedside 68 (70-110)
== END 2021-10-22 12:20 | disposition home or self-care (01) ==
LOC: OUTP 09:53
PROVIDERS: PCP Internal Medicine Adolescent Medicine; Visit Provider Internal Medicine
PROC: 0DJD8ZZ Inspection of Lower Intestinal Tract, Via Natural or Artificial Opening Endoscopic (ICD-10-PCS; CPT 45378; principal; 2021-10-22 11:00)
DX: Z12.11 Encounter for screening for malignant neoplasm of colon (principal); Z80.0 Family history of malignant neoplasm of digestive organs; Z79.899 Other long term (current) drug therapy; E11.9 Type 2 diabetes mellitus without complications; I48.91 Unspecified atrial fibrillation; K21.9 Gastro-esophageal reflux disease without esophagitis; I10 Essential (primary) hypertension; Z79.84 Long term (current) use of oral hypoglycemic drugs
CPT/HCPCS: 45378; 82962

== ENCOUNTER → 2021-10-23 08:47 | Outpatient (CLI) | payer BC, SELFPAY ==
--- NOTE | 2021-10-23 08:53 | XR_ITS ---
FINAL REPORT CLINICAL HISTORY: Pt had port placed in february 2021, pain in rt shoulder since @ humeral head. COMPARISON: 04/29/2021 FINDINGS: LEFT SHOULDER Five views were obtained. There is no acute fracture or dislocation. There is mild acromioclavicular and glenohumeral joint degenerative change, stable. No soft tissue abnormality is identified. IMPRESSION: Degenerative changes as above, stable. Reviewed, Interpreted and Dictated by Yunier Garcia III, MD Transcribed by Angeles Cervantes Authenticated and [facility]
== END ==
PROVIDERS: PCP Internal Medicine Adolescent Medicine; Visit Provider Orthopaedic Surgery
DX: M25.512 Pain in left shoulder (principal)
CPT/HCPCS: 73030

== ENCOUNTER → 2022-04-16 14:35 | Outpatient (CLI) | payer BC, SELFPAY ==
--- NOTE | 2022-04-16 14:39 | XR_ITS ---
FINAL REPORT CLINICAL HISTORY: LEFT HIP PAIN x3 MONTHS, NO INJURIES OR PRIOR SX COMPARISON: 09/08/2020 FINDINGS: Left hip Three views were obtained. There is no acute fracture or dislocation. There are mild degenerative changes of both hips. No soft tissue abnormality is identified. IMPRESSION: Mild degenerative changes. Reviewed, Interpreted and Dictated by Yunier Garcia III, MD Transcribed by Angeles Cervantes Authenticated and [facility]
== END ==
PROVIDERS: PCP Internal Medicine Adolescent Medicine; Visit Provider Nurse Practitioner Family
DX: M25.552 Pain in left hip (principal)
CPT/HCPCS: 73502

== ENCOUNTER → 2022-06-30 13:55 | Outpatient (CLI) | payer BC, SELFPAY ==
--- NOTE | 2022-06-30 14:07 | XR_ITS ---
FINAL REPORT CLINICAL HISTORY: rt hip pain COMPARISON: April 2022 FINDINGS: 2 views of the right hip and an AP pelvis were obtained. There is no acute fracture or dislocation. There is mild degenerative change of the right hip. There is bony growth of the superior acetabulum. There is a focal bump at the femoral head/neck junction. Mixed type femoral acetabular impingement cannot be excluded. There are no soft tissue abnormalities. IMPRESSION: Mild right hip degenerative change. Bony overgrowth of the superior acetabulum with a focal bulge at the femoral head/neck junction. Mixed type femoral acetabular impingement cannot be excluded. Reviewed, Interpreted and Dictated by Yunier Garcia III, MD Transcribed by Tico Goldberg Authenticated and [facility]
== END ==
PROVIDERS: PCP Internal Medicine Adolescent Medicine; Visit Provider Orthopaedic Surgery
DX: M25.551 Pain in right hip (principal)
CPT/HCPCS: 73502

== ENCOUNTER → 2022-09-21 16:47 | Outpatient (CLI) | payer BC, SELFPAY ==
[2022-09-21 18:05] LABS: Basophils % 0.9 % (0.1-2.0); Eosinophils # 0.2 K/mm3 (0.0-0.4); Eosinophils % 3.7 % (0.1-12.0); Hematocrit 45.9 % (42.0-52.0); Hemoglobin 15.5 g/dL (14.1-18.0); Lymphocytes # 1.1 K/mm3 (0.7-4.5); Lymphocytes % 23.5 % (10-50); Mean Corpuscular HGB Conc 33.8 g/dL (31.8-35.4); Mean Corpuscular Volume 88.8 fl (80-94); Mean Platelet Volume 7.7 fl (7.4-10.4); Monocytes # 0.5 K/mm3 (0.1-1.0); Monocytes % 11.4 % (1.7-9.3); Neutrophils # 2.9 K/mm3 (1.8-7.8); Neutrophils % 60.6 % (37.0-80.0); Platelet Count 143 K/mm3 (142-424); Red Blood Count 5.16 M/mm3 (4.60-6.20); Red Cell Distribution Width 13.5 % (11.5-17.5); White Blood Count 4.8 K/mm3 (4.8-10.8)
[2022-09-21 18:11] LABS: INR 1.14 (0.9-1.1); Prothrombin Time 12.2 seconds (10.1-12.5)
[2022-09-21 18:19] LABS: Alanine Aminotransferase 33 U/L (12-78); Albumin Level 4.4 g/dl (3.5-5.0); Albumin/Globulin Ratio 1.7 (1.1-1.8); Alkaline Phosphatase 96 U/L (38-126); Anion Gap 18.3 mEq/L (5-15); Aspartate Amino Transferase 35 U/L (17-59); Bilirubin,Total 1.4 mg/dl (0.2-1.3); Blood Urea Nitrogen 21 mg/dl (9-20); Calcium 9.3 mg/dl (8.4-10.2); Carbon Dioxide 25 mmol/L (22.0-30.0); Chloride 100 mmol/L (98-107); Chol/HDL Ratio 3.3 (1-3.5); Cholesterol 182 mg/dl (140-200); Estimated Glomerular Filt Rate 64 ml/min (>60); GFR (African American) 77 ML/MIN (>60); Globulin 2.6 g/dL (1.3-3.2); Glucose 85 mg/dl (74-100); HDL Cholesterol 56 mg/dl (40-60); Magnesium 1.9 mg/dl (1.6-2.3); Potassium 4.3 mmoL/L (3.5-5.1); Sodium 139 mmol/L (136-145); Triglycerides 229 mg/dl (30-150); VLDL Cholesterol 46 mg/dL (0-40)
[2022-09-21 18:28] LABS: NT Pro Brain Natriuretic Pep. 245 pg/mL (0-125)
[2022-09-21 19:02] LABS: Hemoglobin A1C 5.1 % (4.0-6.0)
== END ==
PROVIDERS: PCP Internal Medicine Adolescent Medicine; Visit Provider Internal Medicine
DX: I42.8 Other cardiomyopathies (principal)
CPT/HCPCS: 36415; 80053; 80061; 83036; 83735; 83880; 85025; 85610

== ENCOUNTER 2024-02-14 08:35 | Day surgery (SDC) | payer MEDICARE, BC, SELFPAY ==
[2024-02-11 15:17] VITALS: BMI 30.9
--- NOTE | 2024-02-11 15:42 | SUR.PREOP ---
Letter from [facility] received for patient to stop Xarelto today and resume the day after procedure. Claude WHITE and ALYSIA Dickerson notified. No new orders received. Pt contacted with instructions for stopping of blood thinners. Voiced understanding.
[2024-02-14] VITALS (10 sets, daily range): BP systolic 115–149; BP diastolic 70–84; PULSE 60–70; RESP 15–18; TEMP 36.1–36.8; O2SAT 94–99
[2024-02-14 09:38] LABS: Chloride 106 mmol/L (98-107); Potassium 4.4 mmoL/L (3.5-5.1); Sodium 139 mmol/L (136-145)
[2024-02-14 09:41] LABS: Anion Gap 9.4 mEq/L (5-15); Blood Urea Nitrogen 22 mg/dl (9-20); Carbon Dioxide 28 mmol/L (22.0-30.0); Creatinine Clearance Estimated 109 mL/min (50-200); Estimated Glomerular Filt Rate 70 ml/min (>60); GFR (African American) 85 ML/MIN (>60)
[2024-02-14 09:42] LABS: Basophils % 1.1 % (0.1-2.0); Calcium 9.4 mg/dl (8.4-10.2); Eosinophils # 0.2 K/mm3 (0.0-0.4); Eosinophils % 3.6 % (0.1-12.0); Glucose 108 mg/dl (74-100); Hematocrit 45.1 % (42.0-52.0); Hemoglobin 15.5 g/dL (14.1-18.0); Lymphocytes # 0.7 K/mm3 (0.7-4.5); Lymphocytes % 15.5 % (10-50); Mean Corpuscular HGB Conc 34.3 g/dL (31.8-35.4); Mean Corpuscular Hemoglobin 30.3 pg (27.0-31.2); Mean Corpuscular Volume 88.3 fl (80-94); Mean Platelet Volume 7.3 fl (7.4-10.4); Monocytes # 0.3 K/mm3 (0.1-1.0); Neutrophils % 71.8 % (37.0-80.0); Platelet Count 148 K/mm3 (142-424); Red Blood Count 5.11 M/mm3 (4.60-6.20); Red Cell Distribution Width 13.7 % (11.5-17.5); White Blood Count 4.2 K/mm3 (4.8-10.8)
[2024-02-14 09:47] LABS: POC Glucose,Bedside 68 (70-110)
[2024-02-14] MEDS: DEXTROSE 5%-LACTATED RINGERS 1,000 ML 25 ML IV (10:22)
[2024-02-14 10:24] LABS: POC Glucose,Bedside 277 (70-110)
[2024-02-14] MEDS: CLINDAMYCIN PHOSPHATE/D5W 900 MG/50 ML PIGGYBACK 100 MG IV (12:15)
[2024-02-14] MEDS: LIDOCAINE 1% 20ML MDV 20 ML (12:28)
[2024-02-14] MEDS: ROPIVACAINE 0.5% 30ML VIAL 150 MG (12:28)
--- NOTE | 2024-02-14 12:37 | EXP.ANES.CKL ---
[facility] Disclaimer: The information contained in this section may have been updated after the patient was seen, as this information can be updated by other users. Medical History Pacemaker History of cardioversion History of blood clots Diabetic acidosis, type II History of cardioversion COPD (chronic obstructive pulmonary disease) Sleep apnea Asthma Surgical History H/O prior ablation treatment History of arthroscopy of right shoulder History of cardiac radiofrequency ablation Family History (Updated 02/14/24 @ 09:05 by Monet Shaffer RN) Other Family history of cancer Family history of diabetes mellitus type II Family history of myocardial infarction Social History Smoking Status: Never smoker alcohol intake: never substance use type: denies use current occupational status: disabled Travel in the last 8 weeks: None housing: house caffeine: Yes [facility] Anesthesia Checklist Patient Identification Patient Identification: Verbal (Name & ) Structural Data Admitted From: Home Planned Operative Procedure/s: excision cyst neck NPO Status Verified Time NPO: 00:00 Additional verifications Anesthesia Reactions: No Hx Blood Transfusions: No Blood Transfusion Reaction: No Airway Assessment Mallampati Score:: Class II C-Spine Mobility Assessed: Yes TMJ Mobility Assessed: Yes Dentition: Poor Dentition Neurological Assessment Level of Consciousness: Awake, Alert and Appropriate Anesthesia Plan Anesthesia Risk discussed: Yes Anesthesia Plan: Verified ASA Class: III Anesthesia Type: General
--- NOTE | 2024-02-14 13:16 | EXP.OP.NOTE ---
Date of procedure: 02/14/24 Pre-op Diagnosis:: Abscess sebaceous cyst, left supraclavicular area Post-op Diagnosis:: Same Procedure performed:: Excision and debridement of abscess sebaceous cyst Surgeon:: Yunier Domínguez MD OUTSIDE INSTALLER APPRENTICE:: Viktor Dunne Anesthesia: LMA Estimated blood loss (mL): 15 Operative findings:: Consistent with previously ruptured abscess sebaceous cyst. Tissue planes and capsule boundary was difficult to discern. Operative note:: Patient was taken the operating room. He was given preoperative intravenous antibiotics. In the operating room he was placed in a supine position. General anesthesia was induced via LMA. The area was prepped and draped in the standard surgical fashion. Skin was marked with a skin marker. Local anesthetic was infiltrated superficially. Incision was made with the central draining area excised. Dissection was carried down through full-thickness of skin. Caseous material was encountered. Attempt was made to dissected free the cyst capsule but tissue planes were difficult to discern. Using scissor dissection with some limited use of scalpel dissection cyst tissues were sequentially excised. Debridement was carried out using a small curette. There was some oozing from the inflamed tissues and some use of electrocautery was used for hemostasis. Wound was thoroughly irrigated. Additional local anesthetic was infiltrated. Wound was partially closed with several interrupted 3-0 nylon sutures. Central portion was packed with 1/4 inch plain packing gauze. Clean dry sterile dressing was applied. . Condition: stable Disposition: PACU Complications:: None immediately apparent
--- NOTE | 2024-02-14 13:24 | EXP.ANES.I ---
[facility] Anesthesia Record Part I Anesthesia Record I Intake, IV Amount: 1,200 Hydration: Adequate Estimated blood loss (mL): 0 Urine output (mL): 0 Blood Pressure: 116/75 SaO2: 96 Pulse Rate: 70 Airway Patency: Patent Respiratory Rate: 16 Temperature: 97.5 F Patient is:: Awake and Stable Stable to PACU at:: 13:20
[2024-02-14 13:31] LABS: POC Glucose,Bedside 80 (70-110)
--- NOTE | 2024-02-14 14:26 | EXP.ANES.II ---
[facility] Anesthesia Record Part II Anesthesia Record Part II Discharge Time: 13:50 Destination: Surgical Day Care (OP Surgery) PACU nurse assessment reviewed?: Yes Patient Condition:: Good Anesthesia Complications:: None Swallowing reflex intact?: Yes Airway Patency: Patent Cyanosis?: No Blood Pressure: 115/76 SaO2: 96 Respiratory Rate: 18 Pulse Rate: 70 Temperature: 97.2 F Mental Status: Alert & Oriented Pain level:: 0 Nausea and/or vomitting:: None Intake, IV Amount: 0 Hydration: Adequate
== END 2024-02-14 14:25 | disposition home or self-care (01) ==
PROVIDERS: Nurse Anesthetist, Certified Registered; PCP Internal Medicine Adolescent Medicine; Visit Provider Surgery
PROC: (CPT 10060; principal; 2024-02-14 10:15)
DX: L02.11 Cutaneous abscess of neck (principal)
CPT/HCPCS: 10060; 80048; 82962; 85025; J1100; J1885; J2250; J2405; J3010

== ENCOUNTER 2024-10-06 12:50 | Outpatient (CLI) | payer MEDICARE, BC, SELFPAY ==
--- NOTE | 2024-10-06 12:54 | CT_ITS ---
FINAL REPORT TECHNIQUE: Multiple axial CT sections were performed from the foramen magnum to the vertex. Coronal reformatted images were also obtained. Precontrast and postcontrast injection images were obtained. This study was performed with technique to keep radiation doses as low as reasonably achievable, (ALARA). Individualized dose reduction techniques using automated exposure control or adjustment of mA and/or kV according to the patient size were employed. CLINICAL HISTORY: vision loss in right eye; hx of stent placement in right eye to drain fluid. pt states feeling pressure in both eyes now; having issues with left eye. FINDINGS: The ventricles are normal in size. There is no evidence of hemorrhage. No masses are identified. No extra-axial fluid collection is seen. The paranasal sinuses are well aerated. No osseous abnormality is seen on the bone window images. Postcontrast images demonstrate no abnormal enhancement. IMPRESSION: Unremarkable CT of the head with and without contrast. Reviewed, Interpreted and Dictated by Riley Bender MD Transcribed by Angeles Cervantes Authenticated and [facility]
--- NOTE | 2024-10-06 12:54 | CT_ITS ---
FINAL REPORT TECHNIQUE: Thin-section axial CT images were performed through the temporal bones before and after contrast administration. Coronal and sagittal reformatted images were submitted. This study was performed with techniques to keep radiation doses as low as reasonably achievable, (ALARA). Individualized dose reduction techniques using automated exposure control or adjustment of mA and/or kV according to the patient's size were employed. CLINICAL HISTORY: R/O ISCHEMIA, CP, FREQUENT HEADACHES vision loss in right eye; hx of stent placement in right eye to drain fluid. pt states feeling pressure in both eyes now; having issues with left eye. FINDINGS: The globes are symmetric. There is abnormal density in the right lacrimal apparatus well-seen on images 108 through 118 of series 5. This does not appear to enhance. There is no intra or extraconal inflammation. IMPRESSION: Unusual density in the right lacrimal apparatus, presumably related to prior surgery. Please correlate clinically. Reviewed, Interpreted and Dictated by Riley Bender MD Transcribed by Angeles Cervantes Authenticated and [facility]
[2024-10-06] MEDS: IOPAMIDOL-300 (61%) 100ML VIAL 100 ML IV (13:29)
[2024-10-06] MEDS: SODIUM CHLORIDE 0.9% 10ML SYR (RAD ONLY) 10 ML IV (13:29)
== END 2024-10-06 23:59 | disposition home or self-care (01) ==
LOC: RAD 12:51
PROVIDERS: PCP Internal Medicine Adolescent Medicine; Visit Provider Internal Medicine Adolescent Medicine
DX: R90.89 Other abnormal findings on diagnostic imaging of central nervous system (principal); R07.9 Chest pain, unspecified; R51.9 Headache, unspecified
CPT/HCPCS: 70470; 70482; Q9967

== ENCOUNTER 2025-03-06 11:12 | Day surgery (SDC) | payer MEDICARE, BC, SELFPAY ==
[2025-03-06 11:18] VITALS: BP 153/94; PULSE 78; RESP 18; O2SAT 95; BMI 29.5
[2025-03-06] MEDS: BUPIVACAINE 0.25% 10ML INJ 25 MG IJ (11:51)
[2025-03-06] MEDS: LIDOCAINE 1% 5ML PF VIAL 5 ML (11:52)
[2025-03-06] MEDS: DEXAMETHASONE 10MG/ML 1ML VIAL 10 MG (11:52)
[2025-03-06 11:54] VITALS: BP 153/94; PULSE 78; RESP 18; O2SAT 95
--- NOTE | 2025-03-06 11:59 | P.PCN_ITS ---
Procedure Date: 03/06/25 Time: 11:50 Anesthesiologist:: Dakota Ryan CRNA Complications:: None Pre-procedure Diagnosis:: Left sacroiliitis. Left trochanteric bursitis. Post-procedure Diagnosis:: Same. Indications for Procedure:: Patient is a very pleasant 54-year-old male who comes to our clinic today for a left sacroiliac joint injection of cortisone local anesthetic. Also a left trochanteric bursa injection of cortisone and local anesthetic. Patient describes left posterior hip pain as constant, dull, aching. Also, left lateral hip pain as sharp and stabbing. Patient is having difficulty with ambulation due to low lumbar back pain on the left. He rates pain 7/10. Procedure Details:: Procedure: Left sacroiliac injection under fluoroscopy Informed consent was obtained and the risk and benefits of the procedure were e xplained to the patient.~ The patient was taken to the procedure room and noninvasive monitors were placed including noninvasive blood pressure cuff and pulse oximeter.~ The patient was placed prone on the procedure table.~ The~ left hip was cleansed using Betadine as a cleansing solution.~ C-arm fluorosocpy was used to view the left SI joint.~ The skin and subcutaneous tissues were anesthetized using Lidocaine 1.5% and a 25-gauge needle.~ After this, a 22-gauge spinal needle was inserted under fluoroscopic guidance into the inferior aspect of the left SI joint.~ Omnipaque dye was injected and a good spread was seen throughout the joint.~ After this, approximately 5 mL of bupivacaine 0.25% and dexamethasone 5 mg was incrementally injected into the sacroiliac joint.~ The patient tolerated the procedure well with no complications.~ The patient was observed in the Pain Clinic for a period of 30-45 minutes, then discharged home neurologically intact.~ Procedure:Left trochanteric bursa injection under fluoroscopy We then moved to the left trochanteric bursa.~ C-arm fluoroscopy was used to view the left greater trochanter.~ The skin and subcutaneous tissues overlying the left greater trochanter were anesthetized using lidocaine, 1.5% and a 25- gauge needle.~ After this, a 22-gauge spinal needle was inserted and advanced until it contacted the left greater trochanter.~ Dye was injected and good spread was seen throughout the left trochanteric bursa. After this, approximately 5 mL of bupivacaine, 0.25% and dexamethasone 5 mg was incrementally injected into the left trochanteric bursa.~ The patient tolerated the procedure well with no complications. Plan and Disposition:: Patient was discharged without incident.
[2025-03-06 12:03] VITALS: BP 153/94; PULSE 78; RESP 18; O2SAT 95
[2025-03-06 12:09] VITALS: BP 119/70; PULSE 70; RESP 16; O2SAT 97
== END 2025-03-06 12:09 | disposition home or self-care (01) ==
PROVIDERS: PCP Internal Medicine Adolescent Medicine; Visit Provider Nurse Anesthetist, Certified Registered
DX: M46.1 Sacroiliitis, not elsewhere classified (principal); M70.62 Trochanteric bursitis, left hip; E11.9 Type 2 diabetes mellitus without complications; Z95.0 Presence of cardiac pacemaker; Z86.2 Personal history of diseases of the blood and blood-forming organs and certain disorders involving the immune mechanism; Z86.79 Personal history of other diseases of the circulatory system; Z79.891 Long term (current) use of opiate analgesic; Z79.899 Other long term (current) drug therapy
CPT/HCPCS: 20610; G0260; J0665; J1100; J2003

== ENCOUNTER 2025-04-03 10:43 | Day surgery (SDC) | payer MEDICARE, BC, SELFPAY ==
[2025-04-03 10:55] VITALS: BP 132/78; PULSE 79; RESP 18; O2SAT 98
[2025-04-03] MEDS: BUPIVACAINE 0.25% 10ML INJ 25 MG IJ (10:56)
[2025-04-03] MEDS: LIDOCAINE 1% 5ML PF VIAL 5 ML (10:57)
[2025-04-03] MEDS: DEXAMETHASONE 10MG/ML 1ML VIAL 10 MG (10:57)
[2025-04-03 10:58] VITALS: BP 124/78; PULSE 70; RESP 16; O2SAT 96; BMI 37.6
[2025-04-03 11:01] VITALS: BP 132/78; PULSE 79; RESP 18; O2SAT 98
--- NOTE | 2025-04-03 11:02 | EXP.PAIN.PRO ---
Procedure Date: 04/03/25 Time: 10:45 Anesthesiologist:: Dakota Ryan CRNA Complications:: None Pre-procedure Diagnosis:: Left sacroiliitis Post-procedure Diagnosis:: Same Indications for Procedure:: Patient is a pleasant 54-year-old male who comes our clinic today for left sacroiliac joint injection of cortisone and local anesthetic. Patient describes left posterior hip pain as well as left low lumbar back pain that is constant, dull, aching. He is having difficulty with ambulation. Difficulty transitioning from sitting to standing. He rates his pain 7/10. Procedure Details:: Procedure: Left sacroiliac injection under fluoroscopy Informed consent was obtained and the risk and benefits of the procedure were explained to the patient.~ The patient was taken to the procedure room and noninvasive monitors were placed including noninvasive blood pressure cuff and pulse oximeter.~ The patient was placed prone on the procedure table.~ The~ left hip was cleansed using Betadine as a cleansing solution.~ C-arm fluorosocpy was used to view the left SI joint.~ The skin and subcutaneous tissues were anesthetized using Lidocaine 1.5% and a 25-gauge needle.~ After this, a 22-gauge spinal needle was inserted under fluoroscopic guidance into the inferior aspect of the left SI joint.~ Omnipaque dye was injected and a good spread was seen throughout the joint.~ After this, approximately 5 mL of bupivacaine 0.25% and dexamethasone 10 mg was incrementally injected into the sacroiliac joint.~ The patient tolerated the procedure well with no complications.~ The patient was observed in the Pain Clinic for a period of 30-45 minutes, then discharged home neurologically intact.~ Plan and Disposition:: Patient was discharged without incident.
[2025-04-03 11:05] VITALS: BP 119/77; PULSE 70; RESP 16; O2SAT 97
== END 2025-04-03 11:05 | disposition home or self-care (01) ==
PROVIDERS: PCP Internal Medicine Adolescent Medicine; Visit Provider Nurse Anesthetist, Certified Registered
DX: M46.1 Sacroiliitis, not elsewhere classified (principal); J44.9 Chronic obstructive pulmonary disease, unspecified; E11.10 Type 2 diabetes mellitus with ketoacidosis without coma; Z83.3 Family history of diabetes mellitus; Z95.0 Presence of cardiac pacemaker; Z79.899 Other long term (current) drug therapy; Z79.84 Long term (current) use of oral hypoglycemic drugs; G47.33 Obstructive sleep apnea (adult) (pediatric)
CPT/HCPCS: G0260; J0665; J1100; J2003